=== PATIENT | male | born 1970 | race Caucasian/White ===

== ENCOUNTER → 2021-07-06 15:59 | Outpatient (BNVA) | payer OTHER, SELFPAY | PROVIDERS: PCP Internal Medicine; Referring Provider Internal Medicine; Visit Provider Nurse Practitioner Family ==

== ENCOUNTER 2021-11-12 07:35 | Outpatient (REF) | payer OTHER, SELFPAY ==
[2021-11-12 11:56] LABS: Alanine Aminotransferase 41 U/L (0-40); Albumin Level 4.6 g/dL (3.5-5.0); Alkaline Phosphatase 55 U/L (39-117); Anion Gap 13 (12-20); Aspartate Amino Transferase 23 U/L (5-37); Bilirubin Total 0.6 mg/dL (0.0-1.0); Blood Urea Nitrogen 19 mg/dL (9-16); Calcium 9.5 mg/dL (8.4-10.2); Carbon Dioxide 27 mmol/L (22-29); Chloride 106 mmol/L (96-108); Cholesterol 193 mg/dL; Estimated Glomerular Filt Rate > 60; Glucose Fasting 94 mg/dL (60-99); HDL Cholesterol 35 mg/dL; LDL Cholesterol Calculated 123 mg/dl; Potassium 3.7 mmol/L (3.3-5.1); Sodium 142 mmol/L (135-145); Total Protein 7.5 g/dL (6.5-8.0); Triglycerides 178 mg/dL
[2021-11-12 12:17] LABS: Vitamin D 25-OH Total 13.5 ng/mL (>30)
== END 2021-11-12 07:36 | disposition home or self-care (01) ==
LOC: HO.HMGCLDS 07:35
PROVIDERS: PCP Internal Medicine; Visit Provider Internal Medicine
DX: E78.1 Pure hyperglyceridemia (principal); I10 Essential (primary) hypertension
CPT/HCPCS: 36415; 80053; 80061; 82306

== ENCOUNTER 2021-12-28 07:23 | Day surgery (SDC) | payer OTHER, SELFPAY ==
[2021-12-24 15:23] VITALS: BMI 29.0
[2021-12-28 07:30] VITALS: BMI 28.7
[2021-12-28 07:43] VITALS: BP 149/89; PULSE 101; RESP 16; TEMP 36.6; O2SAT 98
[2021-12-28] MEDS: Lactated Ringers 1,000 ML 50 ML IVCONT (07:50)
--- NOTE | 2021-12-28 07:53 | MHC.SHP ---
Pre-Procedural Eval Section A Date of Service: 12/28/21 The patient is an INPATIENT: No The History & Physical has been completed within 30 days and I have reviewed it.: No Section B Chief Complaint: screening Details of Present Illness: Colon cancer screening Relevant Family History (Specify if Yes): No Relevant Social History: None Present Medications: see Short Stay Collaborative assessment Medical History: Significant History (Essential hypertension Heartburn symptom Influenza vaccination declined Low back pain potentially associated with radiculopathy Lumbago Tetanus, diphtheria, and acellular pertussis (Tdap) vaccination declined) History of Previous Operations: Relevant previous surgery/procedure and date(s) (History of EGD) Allergies: Allergies Allergy/AdvReac Type Severity Reaction Status Date / Time Sulfa (Sulfonamide Allergy Unknown Rash Verified 10/12/21 09:49 Antibiotics) Review of Systems Sugical H&P ROS: Negative: Constitution, Cardiovascular, Respiratory and Gastrointestinal Exam Surgical H&P Exam: Normal: Heart, Normal: Lungs, Normal: Extremities and Normal: Abdomen Plan Diagnosis/Plan: Unchanged I have reviewed the history and physical and performed a pertinent physical examination on my patient. No changes have occurred unless specified.
--- NOTE | 2021-12-28 07:55 | W.PM.OPN ---
Operative Note Operative Note Date of Service: 12/28/21 Narrative: Pre-op diagnosis: Colon cancer screening Post-op diagnosis:?other (Colon polyps, diverticulosis, hemorrhoids) Procedure: COLONOSCOPY TILL CECUM WITH BIOPSIES Consent: Indications for the procedure and potential complications of bleeding, perforation, reaction to medications and missed diagnosis were discussed with the patient and informed consent was obtained. Instrument: Olympus PCF H 190 L variable stiffness pediatric colonoscope Monitoring: Vital signs and clinical assessment, intermittent blood pressure monitoring, continuous EKG monitoring, Pulse oximetry and Carbon Dioxide monitoring were done throughout the procedure. Colon withdrawl time was 17 minutes. Procedure: The patient was placed in the left lateral decubitis position and pre-procedure medications were administered. After a digital rectal examination of the ano-rectum, the video colonoscope was inserted into the rectum and advanced through the colon to the cecum. The colonoscope was slowly withdrawn in a retrograde panoramic fashion and the colon mucosa was carefully examined including a retroflexed view of the rectum. Findings and interventions are described below. Procedure Difficulty: Without difficulty Findings: Terminal Ileum: Not evaluated Cecum:? Normal Ascending Colon:? A 5-6 mm sessile polyp removed with a cold biopsy Transverse Colon:? Normal Descending Colon:? Normal Sigmoid Colon:? A 4-5 mm diminutive appearing polyp removed with a cold biopsy. Moderate diverticulosis Rectum:? Two 3-4 mm diminutive appearing polyps - removed with a cold biopsy Ano-rectum:? Moderate internal hemorrhoids Colon preparation: Excellent ? Impression and Post Procedure Diagnosis: Colonoscopy Findings: Four small polyps removed Moderate diverticulosis seen in the sigmoid colon Moderate hemorrhoids on retroflexed exam. Plan: Await pathology results Patient has an appointment on 01/09/22 in the GI Clinic with ? Rosanna Dickson FNP- . Repeat Colonoscopy interval based on path results - in 3-5 years if polyps are adenomatous and 10 years if polyps are hyperplastic. Above findings were reviewed with the patient and colon polyps and diverticulosis handouts were given in the discharge area Surgeon: Gerardo Huang MD Anesthesia:?INGRID (Shona Conley CRNA) Was an Pediatrician Managing Partner used for this Procedure?:?Yes Pediatrician Managing Partner:?Alyssa Lyons Estimated blood loss (mL):?0 Pathology:?other (A. ASCENDING COLON POLYP? B. SIGMOID POLYP? C. RECTAL POLYPS) Condition:?stable Disposition:?PACU
--- NOTE | 2021-12-28 08:18 | P.CONAN_ITS ---
[facility] Active Problems Active Problems: All Active Problems (Updated 11/12/21 @ 16:38 by Jeanna Christensen MD) Vitamin D deficiency (Acute) Hypertriglyceridemia (Acute) Tetanus, diphtheria, and acellular pertussis (Tdap) vaccination declined (Acute) Influenza vaccination declined (Acute) Essential hypertension (Acute) Past Medical History Medical History Essential hypertension Heartburn symptom Hypertriglyceridemia Influenza vaccination declined Low back pain potentially associated with radiculopathy Lumbago Tetanus, diphtheria, and acellular pertussis (Tdap) vaccination declined Vitamin D deficiency Family History Family History Father No problems noted. Mother Mental health disorder Brother No problems noted. Sister No problems noted. Daughter No problems noted. Surgical History Surgical History History of esophagogastroduodenoscopy (EGD) No pertinent past surgical history History of Problems with Anesthesia: No Social History Social History Housing: House Alcohol intake: current Alcohol intake frequency: a few times a month Patient Tobacco Use Status: Former Tobacco user Years Smoked: 6 months Use of substances other than those prescribed or required for medical reasons: No Are you DNR?: No Advance Directives: No Advance Directives Information Provided: Yes Recently lost weight without trying: No How much weight loss: 2-13 pounds Nutrition Risks: No Nutritional Risk Current occupational status: employed Meds Allergies Allergy/AdvReac Type Severity Reaction Status Date / Time Sulfa (Sulfonamide Allergy Unknown Rash Verified 10/12/21 09:49 Antibiotics) Exam Exam Date and Time: December 28, 2021 0818 Height,Weight and Vital Signs: Height 5 ft 10 in Weight 90.718 kg Last Vital Signs Temp 97.8 F 12/28/21 07:43 Pulse 101 H 12/28/21 07:43 Resp 16 12/28/21 07:43 BP 149/89 H 12/28/21 07:43 Pulse Ox 98 12/28/21 07:43 Airway Mallampati Class: III TM Dist: >3cm Neck ROM: Full Loose/Missing/Broken Teeth: No Heart: RRR Lungs: CTA Assessment and Plan Assessment Anesthesia Assessment: Anesthesia Plan Discussed and Chart Reviewed Final Anesthetic Review History of Problems with Anesthesia: No NPO: Yes ASA Class: II Final Preanesthetic Review: Meds/Allgs Chart Reviewed, Consent Obtained/Reviewed and Anes Risks/Benef Reviewed Patient Risk: Low Procedure Risk: Low Anesthetic Plan Anesthetic Plan: MAC: Disposition: Standard PACU
[2021-12-28 09:16] VITALS: BP 97/65; PULSE 68; RESP 18; TEMP 36.4; O2SAT 99
[2021-12-28 09:31] VITALS: BP 114/62; PULSE 72; RESP 18; O2SAT 96
== END 2021-12-28 10:19 | disposition home or self-care (01) ==
PROVIDERS: PCP Internal Medicine; Visit Provider Internal Medicine Gastroenterology
PROC: 0DJD8ZZ Inspection of Lower Intestinal Tract, Via Natural or Artificial Opening Endoscopic (ICD-10-PCS; CPT 45378; principal; 2021-12-28 08:30)
DX: Z12.11 Encounter for screening for malignant neoplasm of colon (principal); D12.2 Benign neoplasm of ascending colon; K63.5 Polyp of colon; K62.1 Rectal polyp; K57.30 Diverticulosis of large intestine without perforation or abscess without bleeding; K64.8 Other hemorrhoids; I10 Essential (primary) hypertension; R12 Heartburn; Z79.899 Other long term (current) drug therapy; Z88.2 Allergy status to sulfonamides; Z87.891 Personal history of nicotine dependence
CPT/HCPCS: 45380; 88305

== ENCOUNTER 2022-01-09 08:11 | Outpatient (REF) | payer OTHER, SELFPAY ==
[2022-01-10 15:08] LABS: H Pylori Breath Test Negative (Negative)
== END 2022-01-09 08:12 | disposition home or self-care (01) ==
LOC: HO.LNP 08:11
PROVIDERS: PCP Internal Medicine; Referring Provider Internal Medicine; Visit Provider Nurse Practitioner Family
DX: K57.90 Diverticulosis of intestine, part unspecified, without perforation or abscess without bleeding (principal); K64.8 Other hemorrhoids; K63.5 Polyp of colon; K21.9 Gastro-esophageal reflux disease without esophagitis; K59.00 Constipation, unspecified; Z87.891 Personal history of nicotine dependence; Z98.890 Other specified postprocedural states; Z11.0 Encounter for screening for intestinal infectious diseases
CPT/HCPCS: 83013

== ENCOUNTER 2022-11-22 09:29 | Outpatient (REF) | payer OTHER, SELFPAY ==
[2022-11-22 11:16] LABS: MANUAL DIFF FLAG NO
[2022-11-22 11:25] LABS: Basophils Absolute Auto 0.1 X10*3/uL (0.0-0.2); Basophils Percent Auto 0.8 % (0-2); Eosinophils Absolute Auto 0.3 X10*3/uL (0.0-0.4); Eosinophils Percent Auto 4.2 % (0-4); Hematocrit 42.8 % (42.0-52.0); Hemoglobin 14.6 g/dl (14.0-18.0); Imm Gran Abs Auto 0.02 X10*3/uL (0.00-0.03); Imm Gran Pct Auto 0.3 % (0.0-0.4); Lymphocytes Absolute Auto 1.7 X10*3/uL (1.2-4.9); Lymphocytes Percent Auto 27.4 % (20-40); Mean Corpuscular HGB Conc 34.1 g/dl (31.0-36.0); Mean Corpuscular Hemoglobin 29.4 pg (27.0-33.0); Mean Corpuscular Volume 86.1 fL (80.0-98.0); Monocytes Absolute Auto 0.6 X10*3/uL (0.1-1.2); Neutrophils Absolute Auto 3.6 x10*3/uL (2.0-8.3); Neutrophils Percent Auto 57.3 % (45-73); Platelet Count 256 X10*3/uL (160-400); Red Blood Count 4.97 X10*6/uL (4.60-5.80); Red Cell Distribution Width 12.6 % (11.0-16.0); White Blood Count 6.2 X10*3/uL (4.8-10.8)
[2022-11-22 11:51] LABS: Alanine Aminotransferase 38 U/L (0-40); Anion Gap 11 (12-20); Aspartate Amino Transferase 26 U/L (5-37); Blood Urea Nitrogen 18 mg/dL (9-16); Calcium 9.9 mg/dL (8.4-10.2); Carbon Dioxide 29 mmol/L (22-29); Chloride 104 mmol/L (96-108); Cholesterol 211 mg/dL; Estimated Glomerular Filt Rate > 60; Glucose Fasting 90 mg/dL (60-99); HDL Cholesterol 37 mg/dL; LDL Cholesterol Calculated 144 mg/dl; Potassium 3.9 mmol/L (3.3-5.1); Sodium 140 mmol/L (135-145); Triglycerides 154 mg/dL
[2022-11-22 12:12] LABS: Vitamin D 25-OH Total 19.1 ng/mL (>30)
== END 2022-11-22 09:30 | disposition home or self-care (01) ==
LOC: HO.HMGCLDS 09:29
PROVIDERS: Visit Provider Internal Medicine
DX: E55.9 Vitamin D deficiency, unspecified (principal); E78.1 Pure hyperglyceridemia; K64.8 Other hemorrhoids; I10 Essential (primary) hypertension
CPT/HCPCS: 36415; 80048; 80061; 82306; 84450; 84460; 85025

== ENCOUNTER 2023-12-20 06:49 | Outpatient (REF) | payer OTHER, SELFPAY ==
[2023-12-20 11:40] LABS: Alanine Aminotransferase 32 U/L (0-40); Albumin Level 4.5 g/dL (3.5-5.0); Alkaline Phosphatase 52 U/L (39-117); Anion Gap 12 (12-20); Aspartate Amino Transferase 23 U/L (5-37); Bilirubin Total 0.6 mg/dL (0.0-1.0); Blood Urea Nitrogen 20 mg/dL (9-16); Calcium 9.5 mg/dL (8.4-10.2); Carbon Dioxide 26 mmol/L (22-29); Chloride 107 mmol/L (96-108); Cholesterol 216 mg/dL (<200); Estimated Glomerular Filt Rate > 60; Glucose Fasting 98 mg/dL (60-99); HDL Cholesterol 45 mg/dL (>40); LDL Cholesterol Calculated 149 mg/dL (<100); Potassium 3.6 mmol/L (3.3-5.1); Sodium 141 mmol/L (135-145); Triglycerides 111 mg/dL (<150)
[2023-12-20 11:57] LABS: Vitamin D 25-OH Total 31.6 ng/mL (>30)
== END 2023-12-20 06:50 | disposition home or self-care (01) ==
LOC: HO.HMGCLDS 06:49
PROVIDERS: PCP Internal Medicine; Visit Provider Internal Medicine
DX: E78.1 Pure hyperglyceridemia (principal); I10 Essential (primary) hypertension; E55.9 Vitamin D deficiency, unspecified
CPT/HCPCS: 36415; 80053; 80061; 82306

== ENCOUNTER → 2023-12-23 10:36 | Outpatient (AMB) | payer OTHER, SELFPAY ==
--- NOTE | 2023-12-23 11:07 | A.OFFPC_ITS ---
Vital Signs 12/23/23 11:10 Height 5 ft 10 in Weight 200 lb BMI 28.7 BP 124/80 Blood Pressure Location Lt brachial Position Sitting Pulse 74 Pulse Source Pulse Oximeter Pulse Oximetry (%) 100 Oxygen Delivery Method Room Air Intake Visit Reasons: Blood work Intake Note: Pt is here today for his recent lab results Allergies Sulfa (Sulfonamide Antibiotics) Allergy (Unknown, Verified 12/23/23 11:27) Rash Medication List - Last Reconciled 12/23/23 by Jeanna Christensen MD amlodipine 10 mg PO QPM lisinopril-hydrochlorothiazide 20-25 mg 1 tab PO DAILY Tobacco use date assessed: 12/23/23 Dental Screening Dental Screen Date: 12/23/23 Did you have a dental visit in the last 12 months?: Yes Did you have a dental problem in the last 6 months where you did not have access to dental care?: Yes Was dental information given to patient?: Patient has dentist HPI Blood work HPI Details 53-year-old male with hypertension, here today for follow-up. Currently taking amlodipine and lisinopril-HCTZ with blood pressure stable controlled. Recent fasting labs showed results within normal limits except for elevated LDL cholesterol at 149 mg/dl. He has been feeling well except for recurrent pain across his lower back. He had an MRI in 2020 which showed presence of severe foraminal stenosis in T11-T12 with nerve compression seen, and lumbar spinal stenosis with some cord compression noted in lumbar spine. Would like a referral now to see neuro spine surgery for further evaluation and management. [facility] Medical History (Updated 12/28/23 @ 00:55 by Jeanna Christensen MD) Hyperlipidemia Degenerative thoracic spinal stenosis Spinal stenosis of lumbar region with radiculopathy Family history of dissecting aortic aneurysm Internal hemorrhoid Diverticulosis Vitamin D deficiency Hypertriglyceridemia Low back pain potentially associated with radiculopathy Heartburn symptom Lumbago Tetanus, diphtheria, and acellular pertussis (Tdap) vaccination declined Influenza vaccination declined Essential hypertension Surgical History Hx of colonoscopy History of esophagogastroduodenoscopy (EGD) No pertinent past surgical history Family History Father Dissecting aortic aneurysm (any part), thoracic Mother Mental health disorder Essential hypertension Brother No problems noted. Sister No problems noted. Daughter No problems noted. Maternal Grandmother Diabetes mellitus Social History Housing: House Alcohol intake: current Alcohol intake frequency: a few times a month Patient Tobacco Use Status: Former Tobacco user Years Smoked: 6 months e-Cigarette/Vaping Use: Never Used Current occupational status: employed Cognitive needs: No Hearing needs: No Vision needs: Yes Questionnaire PHQ-9 Over the last 2 weeks, how often have you been bothered by any of the following problems? 1. Little interest or pleasure in doing things: not at all 2. Feeling down, depressed, or hopeless: not at all 3. Trouble falling or staying asleep, or sleeping too much: not at all 4. Feeling tired or having little energy: not at all 5. Poor appetite or overeating: not at all 6. Feeling bad about yourself - or that you are a failure or have let yourself or your family down: not at all 7. Trouble concentrating on things, such as reading the newspaper or watching television: not at all 8. Moving or speaking so slowly that other people could have noticed. Or the opposite - being so fidgety or restless that you have been moving around a lot more than usual: not at all 9. Thoughts that you would be better off or of hurting yourself in some way: not at all Total score: 0 Depression Screening Interpretation: Negative Depression Screening Done: Yes 28638 - PHQ-9 Billing: Yes Source: Developed by Drs. Joshua Valentino, Nayeli Keene, Irineo Chung and colleagues, with an educational pato from [employer] Thrive Questionnaire Date Thrive assessed: 12/23/23 I am a: Patient What is your living situation today?: I have a steady place to live Within the past 12 months, did the food you bought not last and you didn't have the money to get more?: Never true Within the past 12 months, did you worry whether your food would run out before you got money to buy more?: Never true Do you have trouble paying for medicines?: No Do you have trouble getting transportation to medical appointments?: No Do you have trouble paying your heating and electricity bill?: No Do you have trouble taking care of your child, family member or friend?: No Do you have trouble with day-to-day activities such as bathing, preparing meals, shopping, managing finances, etc.?: No Are you currently unemployed and looking for a job?: No Are you interested in more education?: No THRIVE Score: 0 AUDIT C Alcohol Use Questionnaire (AUDIT-C) 1. How often do you have a drink containing alcohol?: Monthly or less 2. How many drinks containing alcohol do you have on a typical day when you are drinking?: 1 or 2 3. How often do you have six or more drinks on one occasion?: Never Total Score: 1 NICOLÁS-7 AMB Questionnaire NICOLÁS-7 Date NICOLÁS - 7 assessed: 12/23/23 Feeling nervous, anxious, or on edge: 0 = Not at all Not being able to stop or control worryin = Not at all Worrying too much about different things: 0 = Not at all Trouble relaxin = Not at all Being so restless that it is hard to sit still: 0 = Not at all Becoming easily annoyed or irritable: 0 = Not at all Feeling afraid as if something awful might happen: 0 = Not at all Total NICOLÁS-7 score (0-4 normal; 5-9 mild; 10-14 moderate; 15-21 severe): 0 Source: Developed by Drs. Joshua Valentino, Nayeli Keene, rIineo Chung and colleagues, with an educational pato from [employer] NICOLÁS-7 Assessment Billing NICOLÁS-7 Assessment Tool: NICOLÁS-7 Assessment 31766 Review of Systems Const Denies fever(s), Denies headache(s), Denies malaise and Denies weakness Eyes Details: Goes to [facility] for his routine eye exams in [place] ENT Denies otalgia, Denies headache(s), Denies nasal congestion and Denies d isequilibrium Card Reports no additional complaints Resp Reports no additional complaints GI Denies abdominal pain, Denies change in bowel habits, Denies excessive flatus, Denies dyspepsia, Reports heartburn (at night time), Denies diarrhea, Denies loose stools, Denies nausea and Denies vomiting Reports no additional complaints Musc Reports as per HPI Skin/Breast Denies dry skin, Denies lesions and Denies rash Neuro Reports no additional complaints, Denies headache(s), Denies disequilibrium and Denies weakness Psych Reports no additional complaints Endo Reports no additional complaints Nikc/Lymph Denies easy bleeding and Denies easy bruising Aller/Immun Reports no additional complaints Physical exam (Primary Care) Vital Signs: Last Vital Signs Pulse 74 12/23/23 11:10 BP 124/80 12/23/23 11:10 Pulse Ox 100 12/23/23 11:10 Oxygen Delivery Method Room Air 12/23/23 11:10 BMI result Body Mass Index 28.7 Tobacco/Smoking Status: Tobacco use Status Tobacco use date assessed 12/23/23 12/23/23 11:09 Patient Tobacco Use Status Former Tobacco user 12/23/23 11:09 e-Cigarette/Vaping Use Never Used 12/23/23 11:09 PHQ-9: PHQ-9 Score PHQ-9: Total score 0 12/23/23 11:21 Depression Screening Interpretation: Negative Thrive Assessment: Date of Thrive Assessment Date Thrive assessed 12/23/23 12/23/23 11:14 Const General: cooperative, comfortable and no acute distress Orientation/consciousness: patient oriented x3 HENMT Mouth: Normal oral and palatal mucosa present, oropharynx normal and moist mucous membranes Eyes General: appearance normal, both eyes and all related structures Conjunctivae: conjunctivae normal Pupils: Equal, round and reactive pupils present EOM: EOMs intact bilaterally Neck Neck: Yes full ROM, Yes no lymphadenopathy and Yes supple Chest Chest palpation & inspection: normal inspection of the chest Resp Effort & Inspection: normal respiratory effort and able to speak in complete sentences Auscultation: clear to auscultation bilaterally Cardio Rate: regular rate Rhythm: regular rhythm Heart sounds: S1 normal heart sound present and S2 normal heart sound present GI Inspection: Yes normal to inspection Palpation (GI): Soft to palpation, nontender and no masses Auscultation: normal bowel sounds General: Yes no CVA tenderness Male General Exam: Yes normal external exam and No hernia Back/Spine/Pelvis Back: no CVA tenderness Cervical Spine: normal cervical lordosis and cervical ROM normal Thoracic/Lumbar Spine: straight leg raise negative bilaterally, pain with thoraco-lumbar ROM and paraspinal muscle tenderness Skin General skin exam: no rashes or lesions noted Neuro General: patient oriented x3, gait normal, tone normal, moves all extremities, Normal light touch and pain sensation and no focal motor deficits Cranial nerves: Yes Equal, round and reactive pupils present Cognition (Neuro): normal cognition Gait exam (Neuro): Normal gait present Motor exam (neuro): 5/5 motor strength present throughout Extrem General: Yes full ROM, Yes no joint enlargement, Yes no pedal edema, Yes no calf tenderness and Yes normal gait Psych Appearance: grossly normal and well kempt Mental Status: mental status grossly normal Speech and movement: Normal speech and movement present Affect: normal affect Attitude: cooperative Thought process: Normal thought process present Results Reviewed Results Reviewed: ENTERED: 12/20/[address]: ORDERED: CMP Fast, Lipid Panel, Vitamin D 25-OH Test Result Flag Reference Sodium 141 135-145 mmol/L Potassium 3.6 3.3-5.1 mmol/L CL 107 96-108 mmol/L CO2 26 22-29 mmol/L Gap 12 12-20 BUN 20 H 9-16 mg/dL Creat 0.82 0.5-1.4 mg/dL EGFR > 60 NOTE: For -[place] individuals, multiply the result by 1.210. Chronic Kidney Disease: Estimated GFR < 60 mL/min/1.73m2 Severe Kidney Disease: Estimated GFR < 15 mL/min/1.73m2 FBS 98 60-99 mg/dL CA 9.5 8.4-10.2 mg/dL Total Bili 0.6 0.0-1.0 mg/dL AST (GOT) 23 5-37 U/L ALT (GPT) 32 0-40 U/L Protein, Total 7.0 6.5-8.0 g/dL Alb 4.5 3.5-5.0 g/dL Triglyceride 111 <150 mg/dL Desirable Triglyceride: less than 150 mg/dL Borderline High Triglyceride 150-199 mg/dL High Triglyceride: 200-499 mg/dL Very High Triglyceride: greater than or equal to 5OO mg/dL Cholesterol 216 H <200 mg/dL Desirable Cholesterol: less than 200 mg/dL Borderline High Cholesterol: 200-239 mg/dL High Cholesterol: greater than 239 mg/dL LDL Calculated 149 H <100 mg/dL Desirable LDL: less than 100 mg/dL Near Optimal/Above Optimal LDL: 110-129 mg/dL Borderline High LDL: 130-159 mg/dL High LDL: 160-189 mg/dL Very High LDL: greater than or equal to 190 mg/dL HDL 45 >40 mg/dL Desirable HDL: greater than 40 mg/dL Note: This HDL assay may give artificially low results in patients with liver disease. Alk Phos 52 39-117 U/L Vit D 25-OH Tot 31.6 >30 ng/mL Health Based Reference Values* < 20 ng/mL Deficient 20-30 ng/mL Insufficient > 30 ng/mL Sufficient Assessment and Plan Assessment & Plan (1) Essential hypertension: Code(s): I10 - Essential (primary) hypertension Plan: Blood pressure goal is less than 130/80. Continue with lisinopril-HCTZ and amlodipine 10 mg once a day was added. Reinforced importance of following a low sodium diet, getting regular exercise, and lowering stress levels. (2) Degenerative thoracic spinal stenosis: Code(s): M48.04 - Spinal stenosis, thoracic region Plan: Neuro spine referral consult ordered (3) Spinal stenosis of lumbar region with radiculopathy: Code(s): M48.061 - Spinal stenosis, lumbar region without neurogenic claudication; M54.16 - Radiculopathy, lumbar region Plan: Neuro spine referral consult ordered (4) Hyperlipidemia: Code(s): E78.5 - Hyperlipidemia, unspecified Qualifiers: Hyperlipidemia type: pure hypercholesterolemia Qualified Code(s): E78.00 - Pure hypercholesterolemia, unspecified Plan: Reviewed recent fasting lipid profile with patient with LDL cholesterol elevated . Stressed importance of following a low-cholesterol diet and regular exercise, at least 30 minutes 3 to 4 times a week. Advised patient to make healthy food choices, eat more fruits, vegetables, whole grains, wild caught fish and low-fat dairy. Limit amount of meat and fried or fatty food products, as well as processed foods and fast foods. Orders: Referrals Neuro Spine Referral M48.04 - Spinal stenosis, thoracic region, M48.061 - Spinal stenosis, lumbar region without neurogenic claudication, M54.16 - Radiculopathy, lumbar region Medications: New amlodipine 10 mg PO DAILY 90 tabs 1RF Coding Level of Care Code Est Pt Level 4 (89486) Diagnoses Essential hypertension I10 Degenerative thoracic spinal stenosis M48.04 Spinal stenosis of lumbar region with radiculopathy M48.061; M54.16 Pure hypercholesterolemia E78.00 Hyperlipidemia type: pure hypercholesterolemia Additional Codes NICOLÁS-7 Assessment Billing - NICOLÁS-7 Assessment Tool: NICOLÁS-7 Assessment 59012 ([id number])
[2023-12-23 11:10] VITALS: BP 124/80; PULSE 74; O2SAT 100; BMI 28.7
== END ==
PROVIDERS: PCP Internal Medicine; Visit Provider Internal Medicine
DX: I10 Essential (primary) hypertension (principal); M48.04 Spinal stenosis, thoracic region; M48.061 Spinal stenosis, lumbar region without neurogenic claudication; M54.16 Radiculopathy, lumbar region; E78.00 Pure hypercholesterolemia, unspecified
CPT/HCPCS: 99214

== ENCOUNTER 2024-11-30 11:00 | Outpatient (AMB) | payer OTHER, SELFPAY ==
[2024-11-30 11:32] VITALS: BP 132/84; PULSE 76; RESP 16; TEMP 36.6; O2SAT 98; BMI 28.7
--- NOTE | 2024-11-30 11:32 | MHC.PC.OV ---
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 Required: No Accompanied by: Self / Same As Patient Allergies Sulfa (Sulfonamide Antibiotics) Allergy (Unknown, Verified 11/30/24 11:49) Rash Medication List - Last Reconciled 11/30/24 by Jeanna Christensen MD amlodipine 10 mg PO DAILY lisinopril-hydrochlorothiazide 20-25 mg 1 tab PO DAILY Tobacco use date assessed: 11/30/24 Dental Screening Dental Screen Date: 11/30/24 Did you have a dental visit in the last 12 months?: Yes Did you have a dental problem in the last 6 months where you did not have access to dental care?: No Was dental information given to patient?: Patient has dentist HPI Back Pain HPI Details 54 year-old male with past medical history of hypertension, hyperlipidemia, and chronic low back pain found to have degenerative spinal stenosis in lumbar and thoracic spine, here today for follow-up. Currently taking amlodipine and lisinopril-HCTZ with blood pressure stable and controlled. Last fasting labs showed results within normal limits except for elevated LDL cholesterol at 149 mg/dl. He has been feeling well except for recurrent pain across his lower back. He had an MRI in 2020 which showed presence of severe foraminal stenosis in T11-T12 with nerve compression seen, and lumbar spinal stenosis with some cord compression noted in lumbar spine. He sees the dura good base and bad days, but latter is happening more frequently. Denies any numbness weakness in extremities, no los of bladder or bowel control reported. Continues to exercise regularly at the gym but refrains from using heavy weights. [facility] Medical History Hyperlipidemia Degenerative thoracic spinal stenosis Spinal stenosis of lumbar region with radiculopathy Family history of dissecting aortic aneurysm Internal hemorrhoid Diverticulosis Vitamin D deficiency Hypertriglyceridemia Low back pain potentially associated with radiculopathy Heartburn symptom Lumbago Tetanus, diphtheria, and acellular pertussis (Tdap) vaccination declined Influenza vaccination declined Essential hypertension Surgical History Hx of colonoscopy History of esophagogastroduodenoscopy (EGD) No pertinent past surgical history Family History Father Dissecting aortic aneurysm (any part), thoracic Mother Mental health disorder Essential hypertension Brother No problems noted. Sister No problems noted. Daughter No problems noted. Maternal Grandmother Diabetes mellitus Social History Housing: House Alcohol intake: current Alcohol intake frequency: a few times a month Patient Tobacco Use Status: Former Tobacco user Years Smoked: 6 months e-Cigarette/Vaping Use: Never Used service: No Current occupational status: employed Cognitive needs: No Hearing needs: No Vision needs: Yes Questionnaire PHQ-9 Over the last 2 weeks, how often have you been bothered by any of the following problems? 1. Little interest or pleasure in doing things: not at all 2. Feeling down, depressed, or hopeless: not at all 3. Trouble falling or staying asleep, or sleeping too much: not at all 4. Feeling tired or having little energy: not at all 5. Poor appetite or overeating: not at all 6. Feeling bad about yourself - or that you are a failure or have let yourself or your family down: not at all 7. Trouble concentrating on things, such as reading the newspaper or watching television: not at all 8. Moving or speaking so slowly that other people could have noticed. Or the opposite - being so fidgety or restless that you have been moving around a lot more than usual: not at all 9. Thoughts that you would be better off or of hurting yourself in some way: not at all Total score: 0 Depression Screening Interpretation: Negative Depression Screening Done: Yes 23048 - PHQ-9 Billing: Yes Source: Developed by Drs. Joshua Valentino, Nayeli Keene, Irineo Chung and colleagues, with an educational pato from [employer]. Thrive Questionnaire Date Thrive assessed: 11/30/24 I am a: Patient What is your living situation today?: I have a steady place to live Within the past 12 months, did the food you bought not last and you didn't have the money to get more?: I choose not to answer this question Within the past 12 months, did you worry whether your food would run out before you got money to buy more?: I choose not to answer this question Do you have trouble paying for medicines?: No Do you have trouble getting transportation to medical appointments?: No Do you have trouble paying your heating and electricity bill?: No Do you have trouble taking care of your child, family member or friend?: No Do you have trouble with day-to-day activities such as bathing, preparing meals, shopping, managing finances, etc.?: No Are you currently unemployed and looking for a job?: No Are you interested in more education?: No Please select the resources that you would like help with: None Currently or been in a relationship where the following occur: I choose not to answer THRIVE Score: 0 AUDIT C Alcohol Use Questionnaire (AUDIT-C) 1. How often do you have a drink containing alcohol?: Monthly or less 2. How many drinks containing alcohol do you have on a typical day when you are drinking?: 1 or 2 3. How often do you have six or more drinks on one occasion?: Less than monthly Total Score: 2 Score Reviewed/Action Taken: Yes NICOLÁS-7 AMB Questionnaire NICOLÁS-7 Date NICOLÁS - 7 assessed: 11/30/24 Feeling nervous, anxious, or on edge: 0 = Not at all Not being able to stop or control worryin = Not at all Worrying too much about different things: 0 = Not at all Trouble relaxin = Not at all Being so restless that it is hard to sit still: 0 = Not at all Becoming easily annoyed or irritable: 0 = Not at all Feeling afraid as if something awful might happen: 0 = Not at all Total NICOLÁS-7 score (0-4 normal; 5-9 mild; 10-14 moderate; 15-21 severe): 0 Source: Developed by Drs. Joshua Valentino, Nayeli Keene, Irineo Chung and colleagues, with an educational pato from [employer]. NICOLÁS-7 Assessment Billing NICOLÁS-7 Assessment Tool: NICOLÁS-7 Assessment 49266 Review of Systems Const All systems reviewed & are unremarkable except as noted in HPI and below Physical exam (Primary Care) Vital Signs: Last Vital Signs Temp 97.9 F 11/30/24 11:32 Pulse 76 11/30/24 11:32 Resp 16 11/30/24 11:32 BP 132/84 11/30/24 11:32 Pulse Ox 98 11/30/24 11:32 BMI result Body Mass Index 28.7 Tobacco/Smoking Status: Tobacco use Status Tobacco use date assessed 11/30/24 11/30/24 11:33 Patient Tobacco Use Status Former Tobacco user 11/30/24 11:33 e-Cigarette/Vaping Use Never Used 11/30/24 11:33 PHQ-9: PHQ-9 Score PHQ-9: Total score 0 11/30/24 11:49 Depression Screening Interpretation: Negative Thrive Assessment: Date of Thrive Assessment Date Thrive assessed 11/30/24 11/30/24 11:33 Currently or been in a relationship where the following occur: I choose not to answer Const General: comfortable and no acute distress Orientation/consciousness: patient oriented x3 Eyes General: appearance normal, both eyes and all related structures Neck Neck: Yes full ROM, Yes no lymphadenopathy and Yes supple Resp Effort & Inspection: normal respiratory effort and able to speak in complete sentences Auscultation: clear to auscultation bilaterally Cardio Rate: regular rate Rhythm: regular rhythm Heart sounds: S1 normal heart sound present and S2 normal heart sound present GI Inspection: Yes normal to inspection Palpation (GI): Soft to palpation, nontender and no masses Auscultation: normal bowel sounds General: Yes no CVA tenderness Male General Exam: Yes normal external exam and No hernia Back/Spine/Pelvis Back: no CVA tenderness Cervical Spine: normal cervical lordosis and cervical ROM normal Thoracic/Lumbar Spine: straight leg raise negative bilaterally, pain with thoraco-lumbar ROM and paraspinal muscle tenderness Skin General skin exam: no rashes or lesions noted Neuro General: patient oriented x3, gait normal, tone normal, moves all extremities, Normal light touch and pain sensation and no focal motor deficits Cognition (Neuro): normal cognition Gait exam (Neuro): Normal gait present Motor exam (neuro): 5/5 motor strength present throughout Extrem General: Yes full ROM, Yes no joint enlargement, Yes no pedal edema, Yes no calf tenderness and Yes normal gait Psych Appearance: grossly normal and well kempt Mental Status: mental status grossly normal Speech and movement: Normal speech and movement present Affect: normal affect Attitude: cooperative Thought process: Normal thought process present Coding Level of Care Code Est Pt Level 4 (83372) Diagnoses Pure hypercholesterolemia E78.00 Hyperlipidemia type: pure hypercholesterolemia Essential hypertension I10 Spinal stenosis of lumbar region with radiculopathy M48.061; M54.16 Degenerative thoracic spinal stenosis M48.04 Additional Codes NICOLÁS-7 Assessment Billing - NICOLÁS-7 Assessment Tool: NICOLÁS-7 Assessment 93931 ([id number]) PHQ-9 - 55964 - PHQ-9 Billing: Yes ([id number]) Assessment & Plan Assessment & Plan (1) Hyperlipidemia: Code(s): E78.5 - Hyperlipidemia, unspecified Category: Medical Qualifiers: Hyperlipidemia type: pure hypercholesterolemia Qualified Code(s): E78.00 - Pure hypercholesterolemia, unspecified Plan: Fasting lipid panel ordered, advised to adhere to a healthy diet and continue with regular exercise (2) Essential hypertension: Code(s): I10 - Essential (primary) hypertension Category: Medical Plan: Blood pressure stable and controlled on present treatment, continued on lisinopril HCTZ and amlodipine at the same dose (3) Spinal stenosis of lumbar region with radiculopathy: Code(s): M48.061 - Spinal stenosis, lumbar region without neurogenic claudication; M54.16 - Radiculopathy, lumbar region Category: Medical Plan: Will order a repeat MRI of lumbar spine without contrast to assess for any progression of disc disease. Continue with regular exercise but avoid lifting weights (4) Degenerative thoracic spinal stenosis: Code(s): M48.04 - Spinal stenosis, thoracic region Category: Medical Plan: MRI of lumbar spine ordered which may include the also the lower thoracic spine Orders: Orders Lipid Panel 11/30/24 E78.00 - Pure hypercholesterolemia, unspecified, I10 - Essential (primary) hypertension Aspartate Amino Transferase 11/30/24 E78.00 - Pure hypercholesterolemia, unspecified, I10 - Essential (primary) hypertension Basic Metabolic Panel Fasting 11/30/24 E78.00 - Pure hypercholesterolemia, unspecified, I10 - Essential (primary) hypertension Alanine Aminotransferase 11/30/24 E78.00 - Pure hypercholesterolemia, unspecified, I10 - Essential (primary) hypertension MR lumbar spine wo con 02/04/25 M48.04 - Spinal stenosis, thoracic region, M48.061 - Spinal stenosis, lumbar region without neurogenic claudication, M54.16 - Radiculopathy, lumbar region
== END 2024-11-30 12:30 | disposition home or self-care (01) ==
PROVIDERS: PCP Internal Medicine; Visit Provider Internal Medicine
DX: E78.00 Pure hypercholesterolemia, unspecified (principal); I10 Essential (primary) hypertension; M48.061 Spinal stenosis, lumbar region without neurogenic claudication; M54.16 Radiculopathy, lumbar region; M48.04 Spinal stenosis, thoracic region

== ENCOUNTER → 2024-11-30 11:00 | Outpatient (BNVA) | payer OTHER, SELFPAY | PROVIDERS: PCP Internal Medicine; Visit Provider Internal Medicine | DX: E78.00 Pure hypercholesterolemia, unspecified (principal); I10 Essential (primary) hypertension; M48.061 Spinal stenosis, lumbar region without neurogenic claudication; M54.16 Radiculopathy, lumbar region; M48.04 Spinal stenosis, thoracic region; Z79.899 Other long term (current) drug therapy | CPT/HCPCS: 96127 ==

== ENCOUNTER 2025-03-15 13:55 | Outpatient (REF) | payer OTHER, SELFPAY | END 2025-03-15 13:56 | disposition home or self-care (01) | LOC: HO.HMGCLDS 13:55 | PROVIDERS: PCP Internal Medicine; Visit Provider Internal Medicine | DX: Z13.89 Encounter for screening for other disorder (principal) ==

== ENCOUNTER 2025-03-15 13:55 | Outpatient (AMB) | payer OTHER, SELFPAY ==
[2025-03-15 14:10] VITALS: BP 144/82; PULSE 74; RESP 18; TEMP 36.7; O2SAT 98; BMI 29.1
--- NOTE | 2025-03-15 14:10 | MHC.PC.OV ---
Vital Signs 03/15/25 14:10 Height 5 ft 10 in Weight 203 lb BMI 29.1 BP 144/82 H Blood Pressure Location Lt brachial Position Sitting Respiration 18 Pulse 74 Pulse Source Pulse Oximeter Temp 98.0 F Temp Source Oral Pulse Oximetry (%) 98 Oxygen Delivery Method Room Air Intake Visit Reasons: f/u walkin regarding b/p Intake Note: Pt is here today for his f/u walkin b/p Allergies Sulfa (Sulfonamide Antibiotics) Allergy (Unknown, Verified 03/15/25 14:20) Rash Medication List - Last Reconciled 03/15/25 by Jeanna Christensen MD amlodipine 10 mg PO DAILY atenolol 25 mg PO DAILY lisinopril-hydrochlorothiazide 20-25 mg 1 tab PO DAILY nabumetone 500 mg PO BID PRN Tobacco use date assessed: 03/15/25 Dental Screening Dental Screen Date: 03/15/25 Did you have a dental visit in the last 12 months?: Yes Did you have a dental problem in the last 6 months where you did not have access to dental care?: No Was dental information given to patient?: Patient has dentist HPI f/u walkin regarding b/p HPI Details With a 58-year-old male here today for follow-up on his blood pressure. Was checking it at home proximally week ago, when it was elevated at 170/100 he states that his blood pressure was also elevated after he received his cortisone lumbar injection at [facility] last week . Home readings showed 160/80's with facial flushing. Denies chest pain, headache lightheadedness, or blurred vision. Reports no change in diet, activity level, stress/pain. Currently taking atenolol 25 mg daily and amlodipine 10 mg daily [facility] Medical History (Updated 03/15/25 @ 14:27 by Jeanna Christensen MD) Uncontrolled hypertension Hyperlipidemia Degenerative thoracic spinal stenosis Spinal stenosis of lumbar region with radiculopathy Family history of dissecting aortic aneurysm Internal hemorrhoid Diverticulosis Vitamin D deficiency Hypertriglyceridemia Low back pain potentially associated with radiculopathy Heartburn symptom Lumbago Tetanus, diphtheria, and acellular pertussis (Tdap) vaccination declined Influenza vaccination declined Essential hypertension Surgical History Hx of colonoscopy History of esophagogastroduodenoscopy (EGD) No pertinent past surgical history Family History Father Dissecting aortic aneurysm (any part), thoracic Mother Mental health disorder Essential hypertension Brother No problems noted. Sister No problems noted. Daughter No problems noted. Maternal Grandmother Diabetes mellitus Social History Housing: House Alcohol intake: current Alcohol intake frequency: a few times a month Patient Tobacco Use Status: Former Tobacco user Years Smoked: 6 months e-Cigarette/Vaping Use: Never Used service: No Current occupational status: employed Cognitive needs: No Hearing needs: No Vision needs: Yes Questionnaire Thrive Questionnaire Date Thrive assessed: 11/30/24 NICOLÁS-7 AMB Questionnaire NICOLÁS-7 Date NICOLÁS - 7 assessed: 11/30/24 Source: Developed by Drs. Joshua Valentino, Nayeli Keene, Irineo Chung and colleagues, with an educational pato from [employer]. Review of Systems Const All systems reviewed & are unremarkable except as noted in HPI and below Physical exam (Primary Care) Vital Signs: Last Vital Signs Temp 98.0 F 03/15/25 14:10 Pulse 74 03/15/25 14:10 Resp 18 03/15/25 14:10 BP 144/82 H 03/15/25 14:10 Pulse Ox 98 03/15/25 14:10 Oxygen Delivery Method Room Air 03/15/25 14:10 BMI result Body Mass Index 29.1 Tobacco/Smoking Status: Tobacco use Status Tobacco use date assessed 03/15/25 03/15/25 14:11 Patient Tobacco Use Status Former Tobacco user 03/15/25 14:11 e-Cigarette/Vaping Use Never Used 03/15/25 14:11 Thrive Assessment: Date of Thrive Assessment Date Thrive assessed 11/30/24 03/15/25 14:11 Const General: comfortable and no acute distress Orientation/consciousness: patient oriented x3 Eyes General: appearance normal, both eyes and all related structures Neck Neck: Yes full ROM, Yes no lymphadenopathy and Yes supple Resp Effort & Inspection: normal respiratory effort and able to speak in complete sentences Auscultation: clear to auscultation bilaterally Cardio Rate: regular rate Rhythm: regular rhythm Heart sounds: S1 normal heart sound present and S2 normal heart sound present GI Inspection: Yes normal to inspection Palpation (GI): Soft to palpation, nontender and no masses Auscultation: normal bowel sounds Back/Spine/Pelvis Cervical Spine: normal cervical lordosis and cervical ROM normal Thoracic/Lumbar Spine: straight leg raise negative bilaterally, pain with thoraco-lumbar ROM and paraspinal muscle tenderness Skin General skin exam: no rashes or lesions noted Neuro General: patient oriented x3, gait normal, tone normal, moves all extremities, Normal light touch and pain sensation and no focal motor deficits Cognition (Neuro): normal cognition Gait exam (Neuro): Normal gait present Motor exam (neuro): 5/5 motor strength present throughout Extrem General: Yes full ROM, Yes no joint enlargement, Yes no pedal edema, Yes no calf tenderness and Yes normal gait Psych Appearance: grossly normal and well kempt Mental Status: mental status grossly normal Speech and movement: Normal speech and movement present Affect: normal affect Attitude: cooperative Thought process: Normal thought process present Coding Level of Care Code Est Pt Level 4 (23235) Diagnoses Uncontrolled hypertension I10 Encounter for screening for malignant neoplasm of prostate Z12.5 Assessment & Plan Assessment & Plan (1) Uncontrolled hypertension: Code(s): I10 - Essential (primary) hypertension Category: Medical Plan: Blood pressure is decreasing, now almost back to normal at 144/82. Currently asymptomatic. Increased atenolol dose to 50 mg once a day and continued on amlodipine 10 mg daily. Reinforced importance of following a low-salt diet and getting regular exercise.. Will refer to nephrology for further evaluation management, may benefit from a 24 ambulatory blood pressure monitoring (2) Encounter for screening for malignant neoplasm of prostate: Code(s): Z12.5 - Encounter for screening for malignant neoplasm of prostate Plan: Ordered total PSA Orders: Orders PSA,Total (Free>4and<10) 03/15/25 Z12.5 - Encounter for screening for malignant neoplasm of prostate Referrals Nephrology Referral I10 - Essential (primary) hypertension Medications: Changed From atenolol 25 mg PO DAILY 10 tabs 0RF To atenolol 50 mg PO DAILY 90 tabs 0RF
--- OUTSIDE RECORDS SUMMARY | 2025-03-15 15:15 | XMS_ITS | Data Portability ---
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 On exam, he has a positive straight leg raising test on the left. MRI Lumbar spine shows At T11-T12 there is mild spinal canal stenosis and severe left neural foraminal stenosis with compression of the exiting T11 nerve root. At L3-L4 there is mild spinal canal stenosis and bilateral subarticular stenosis and abutment of the exiting right L3 nerve root. At L4-L5 there is left subarticular extrusion causing compression of the traversing left L5 nerve root. Mild to moderate spinal canal stenosis. Mild compression of the exiting left L4 nerve root and abutment of the exiting right L4 nerve root. He is here for a repeat Lumbar epidural steroid injections under fluoroscopic guidance . The risks and benefits of the procedure? ? ? were discussed in detail. He wishes to proceed. He can follow up as needed. [email or web address] Not available 10/09/2023 16:09:46 02/16/2024 02/16/2024 Amado Lobo is a 53 year old man with low back pain radiating into left lower extremity for the past six months. On exam, he has a positive straight leg raising test on the left. MRI Lumbar spine shows At T11-T12 there is mild spinal canal stenosis and severe left neural foraminal stenosis with compression of the exiting T11 nerve root. At L3-L4 there is mild spinal canal stenosis and bilateral subarticular stenosis and abutment of the exiting right L3 nerve root. At L4-L5 there is left subarticular extrusion causing compression of the traversing left L5 nerve root. Mild to moderate spinal canal stenosis. Mild compression of the exiting left L4 nerve root and abutment of the exiting right L4 nerve root. Repeat Lumbar epidural steroid injection at L4-5 level under fluoroscopic guidance was recommended. The risks and benefits of the procedure? ? ? were discussed in detail. He wishes to proceed. 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 He is doing physical therapy and he plans to see a neurosurgeon and needs an updated MRI. [email or web address] Not available 02/16/2024 15:58:58 03/04/2024 03/04/2024 Amado Lobo is a 53 year old man with low back pain radiating into left lower extremity for the past six months. On exam, he has a positive straight leg raising test on the left. MRI Lumbar spine shows At T11-T12 there is mild spinal canal stenosis and severe left neural foraminal stenosis with compression of the exiting T11 nerve root. At L3-L4 there is mild spinal canal stenosis and bilateral subarticular stenosis and abutment of the exiting right L3 nerve root. At L4-L5 there is left subarticular extrusion causing compression of the traversing left L5 nerve root. Mild to moderate spinal canal stenosis. Mild compression of the exiting left L4 nerve root and abutment of the exiting right L4 nerve root. He is here for a repeat Lumbar epidural steroid injections under fluoroscopic guidance . The risks and benefits of the procedure? ? ? were discussed in detail. He wishes to proceed. He can follow up as needed. [email or web address] Not available 03/04/2024 15:59:33 02/04/2025 02/04/2025 Amado Lobo is a 53 year old man with low back pain radiating into left lower extremity for the past six months. On exam, he has a positive straight leg raising test on the left. MRI Lumbar spine shows At T11-T12 there is mild spinal canal stenosis and severe left neural foraminal stenosis with compression of the exiting T11 nerve root. At L3-L4 there is mild spinal canal stenosis and bilateral subarticular stenosis and abutment of the exiting right L3 nerve root. At L4-L5 there is left subarticular extrusion causing compression of the traversing left L5 nerve root. Mild to moderate spinal canal stenosis. Mild compression of the exiting left L4 nerve root and abutment of the exiting right L4 nerve root. Repeat Lumbar epidural steroid injection at L4-5 level under fluoroscopic guidance was recommended. The risks and benefits of the procedure? ? ? were discussed in detail. He wishes to proceed. 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 He is doing physical therapy and he plans to see a neurosurgeon and needs an updated MRI. [email or web address] Not available 02/07/2025 13:57:33 03/09/2025 03/09/2025 Amado Lobo is a 54 year old man with low back pain radiating into left lower extremity for the past six months. On exam, he has a positive straight leg raising test on the left. MRI Lumbar spine shows At T11-T12 there is mild spinal canal stenosis and severe left neural foraminal stenosis with compression of the exiting T11 nerve root. At L3-L4 there is mild spinal canal stenosis and bilateral subarticular stenosis and abutment of the exiting right L3 nerve root. At L4-L5 there is left subarticular extrusion causing compression of the traversing left L5 nerve root. Mild to moderate spinal canal stenosis. Mild compression of the exiting left L4 nerve root and abutment of the exiting right L4 nerve root. He is here for a repeat Lumbar epidural steroid injections under fluoroscopic guidance . The risks and benefits of the procedure? ? ? were discussed in detail. He wishes to proceed. He can follow up as needed. [email or web address] Not available 03/09/2025 13:26:27 Plan of Treatment Reminders Order Date Submit Date Provider Last Modified By Organization Details Last Modified Time Details Appointments RETURN 2024 02:30P M Jackson mccormick MD Not available Not available Not available Lab None recorded . Referral None recorded . Procedures None recorded . Surgeries None recorded . Imaging None recorded . Medication Orders None recorded . Patient TargetsNo targets recorded. Patient Instructions Encounter Date Encounter Id Patient Instructions Last Modified By Organization Details Last Modified Time 10/09/2023 [id number] He was advised against bed rest lasting longer than four days and to continue activities as tolerated. [email or web address] Not available 10/09/2023 16:03:47 02/16/2024 [id number] He was advised against bed rest lasting longer than four days and to continue activities as tolerated. [email or web address] Not available 02/16/2024 15:57:33 03/04/2024 [id number] He was advised against bed rest lasting longer than four days and to continue activities as tolerated. [email or web address] Not available 03/04/2024 15:59:36 02/04/2025 [id number] He was advised against bed rest lasting longer than four days and to continue activities as tolerated. [email or web address] Not available 02/07/2025 13:57:38 03/09/2025 [id number] He was advised against bed rest lasting longer than four days and to continue activities as tolerated. [email or web address] Not available 03/09/2025 13:25:11 Reason for Referral None Reported. Problems Name Problem SNOMED Code Status Onset Date Resolution Date Notes Provider Name and Address Organization Details Recorded Time Lumbosacral radiculopathy 3063851 Active Jackson mccormick MD [address] [facility] [address], [place], [address], [place] [facility] 15:08:40 Degeneration of lumbar intervertebral disc 81116804 Active 2020 Jackson mccormick MD [address] [facility] [facility] , [place] [address], [place], [address], [place] [facility] 15:08:52 Problem Notes None recorded. Procedures Surgical History Date Name Laterality Status Provider Name and Address Organization Details Recorded Time 03/09/20 25 Lumbar Epidural steroid injection under fluoroscopic guidance completed Jackson Retana MD [address] [facility] , [facility] [address], [place], [address], [place] [facility] 03/09/2025 13:26:03 03/04/20 24 Lumbar Epidural steroid injection under fluoroscopic guidance completed Jackson Retana MD [address] [facility] , [facility] [address], [place], [address], [place] [facility] 03/04/2024 16:00:22 10/09/20 23 Lumbar Epidural steroid injection under fluoroscopic guidance completed Jackson Retana MD [address] [facility] , [address], [place], [address], [place] [facility] 10/09/2023 16:08:28 03/19/20 23 Lumbar Epidural steroid injection under fluoroscopic guidance completed Jackson Retana MD [address] , [address], [place], [address], [place] [facility] 03/19/2023 14:02:50 05/21/20 22 Lumbar Epidural steroid injection under fluoroscopic guidance completed Jackson Retana MD [address] [facility] , [address], [place], [address], [place] [facility] 05/21/2022 15:11:26 11/21/19 22 Lumbar Epidural steroid injection under fluoroscopic guidance completed Jackson Retana MD [address] [facility] , [address], [place], [address], [place] [facility] 11/21/2021 09:54:22 05/08/20 21 Lumbar Epidural steroid injection under fluoroscopic guidance completed Jackson Retana MD [address] [facility] , [address], [place], [address], [place] [facility] 05/08/2021 10:15:21 Imaging Results None recorded. Procedure Notes None recorded. Medical Equipment None Reported. Allergies Allergen ID Allergen Name Allergen Category Reaction Reaction Severity Criticality Documentation Date Start Date Code Code System Note Provider Name and Address Organization Details Recorded Time 97680 Substance with sulfonami de structure and antibacte rial mechanism of action (substanc e) medicatio n Not available Not available Not available 03/21/2021 87787 8003 SNOMED Nanette Sherman n null, [place] - [facility] 14:42:07 Medications Name Sig Start Date Stop Date Status Note LastModified by Organization Details LastModified Time cyclobenzap rine 10 mg tablet TAKE 1 TABLET BY MOUTH ONCE DAILY AT BEDTIME NEEDED FOR MUSCLE SPASM 03/21 completed Not Available Not Available Not Available methocarbam ol 500 mg tablet TAKE 1 TABLET BY MOUTH EVERY 12 HOURS NEEDED FOR MUSCLE SPASM 03/21 completed Not Available Not Available Not Available neomycin-po lymyxin-hyd rocort 3.5 mg/mL-10,00 0 unit/mL-1 % ear solution INSTILL 1 DROP IN EACH AFFECTED EAR 4 TIMES A DAY 03/21 completed Not Available Not Available Not Available lisinopril 20 mg tablet TAKE 1 TABLET BY MOUTH EVERY DAY 03/21 completed Not Available Not Available Not Available amlodipine 5 mg tablet TAKE 1 TABLET BY MOUTH EVERY EVENING 02/04 completed Not Available Not Available Not Available amlodipine 10 mg tablet TAKE 1 TABLET BY MOUTH EVERY DAY active Not Available Not Available No t Available omeprazole 20 mg capsule,del ayed release TAKE 1 CAPSULE BY MOUTH EVERY DAY 03/21 completed Not Available Not Available Not Available lisinopril 20 mg-hydrochl orothiazide 25 mg tablet TAKE 1 TABLET BY MOUTH EVERY DAY active Not Available Not Available No t Available hydrochloro thiazide 25 mg tablet TAKE 1 TABLET BY MOUTH EVERY DAY IN THE MORNING 03/21 completed Not Available Not Available Not Available fluticasone propionate 50 mcg/actuati on nasal spray,suspe nsion USE 1 SPRAY INTO EACH NOSTRIL ONCE DAILY 03/21 completed Not Available Not Available Not Available cholecalcif tasha (vitamin D3) 125 mcg (5,000 unit) capsule TAKE 1 CAPSULE BY MOUTH ONCE WEEKLY FOR 3 MONTHS 02/04 completed Not Available Not Available Not Available naproxen 500 mg tablet TAKE 1 TABLET BY MOUTH TWICE A DAY NEEDED FOR PAIN 09/15 completed Not Available Not Available Not Available nabumetone 500 mg tablet TAKE 1 TABLET BY MOUTH TWICE A DAY NEEDED PAIN TAKE WITH FOOD 02/04 completed Not Available Not Available Not Available Dulcolax (bisacodyl) 5 mg tablet,willie yed release 02/04 completed Not Available Not Available Not Available cholecalcif tasha (vitamin D3) 1,250 mcg (50,000 unit) capsule TAKE 1 CAPSULE BY MOUTH ONCE WEEKLY. 02/04 completed Not Available Not Available Not Available diclofenac epolamine 1.3 % transdermal 12 hour patch APPLY 1 PATCH EVERY 12 HOURS NEEDED FOR PAIN, MODERATE 03/21 completed Not Available Not Available Not Available Purelax 17 gram/dose oral powder 02/04 completed Not Available Not Available Not Available EC-Naproxen 500 mg tablet,willie yed release TAKE 1 TABLET BY MOUTH EVERY 12 HOURS NEEDED FOR PAIN 03/21 completed Not Available Not Available Not Available Vitals Date Recorded Body height Heart rate Oxygen saturation Oxygen saturation in Arterial blood by Pulse oximetry Systolic blood pressure Diastolic blood pressure Provider Name and Address Organization Details Last Updated DateTime 3 180.34 cm 77 /min 98 % 98 % 148 mm[Hg] 92 mm[Hg] Stella jeronimo [place] - [facility] 3 15:25:20 Date Recorded Body height Heart rate Oxygen saturation Oxygen saturation in Arterial blood by Pulse oximetry Systolic blood pressure Diastolic blood pressure Provider Name and Address Organization Details Last Updated DateTime 4 180.34 cm 85 /min 95 % 95 % 137 mm[Hg] 80 mm[Hg] Ashleigh Roeosiel [place] - [facility] 4 15:36:24 Date Recorded Body height Heart rate Oxygen saturation Oxygen saturation in Arterial blood by Pulse oximetry Systolic blood pressure Diastolic blood pressure Provider Name and Address Organization Details Last Updated DateTime 4 180.34 cm 87 /min 97 % 97 % 145 mm[Hg] 84 mm[Hg] Stella jeronimo [place] [facility] 4 15:36:31 Date Recorded Body height Heart rate Oxygen saturation Oxygen saturation in Arterial blood by Pulse oximetry Body mass index (BMI) Body weight Systolic blood pressure Diastolic blood pressure Provider Name and Address Organization Details Last Updated DateTime 5 180.34 cm 64 /min 98 % 98 % 27.9 kg/m2 06361.4 7 g 141 mm[Hg] 88 mm[Hg] Jackson mccormick MD [address] , [address], [place], [address], [place] [facility] 5 09:38:04 Date Recorded Body height Body mass index (BMI) Body weight Systolic blood pressure Diastolic blood pressure Provider Name and Address Organization Details Last Updated DateTime 03/09/2025 180.34 cm 27.9 kg/m2 86334.47 g 162 mm[Hg] 92 mm[Hg] Jackson mccormick MD [address] , [address], [place], [address], [place] [facility] 5 13:05:16 Social History Question Answer Notes LastModified by Organizat ion Details LastModified Time Tobacco Smoking Status Never Smoker Nanette villasenor [place] [facility] 03/21/2021 14:45:06 Which Illicit Or Recreational Drugs Have You Used? None Information not available 03/21/2021 Marital Status Informati on not available 03/21/2021 Sex: Unknown Functional Status Question Answer Note LastModified by Organizat [employer] Details LastModified Time What is your level of alcohol consumption? 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 Never used electronic cigarettes Information not available 03/21/2021 Mental Status None recorded. Family History Relationship Description Onset Age of this Age Resolved Age Notes LastModified by Organization Details LastModified Time Father No current problems or disability Not available 14:55:07 Mother No current problems or disability Not available 14:55:07 Medical History Condition Response Coronary Artery Disease N Gout N Neuropathy/Neuralgia N Kidney Stones N Hyperthyroidism N Hypothyroidism N Depression N COPD N Anxiety Disorder N Arthritis Y Cancer N Stroke N HIV/AIDS N High Cholesterol N Liver Disease N Fibromyalgia N Irritable Bowel Syndrome N Kidney Disease N Migrane N Diabetes N Seizures/Epilepsy N Hyperlipidemia N Asthma N Bipolar Disorder N GERD/Reflux N Pulmonary Embolism N Hypertension Y Osteoporosis N Past Encounters Encounter ID Performer Location Encounter Start Date Encounter Closed Date Diagnosis/Indication Diagnosis SNOMED-CT Code Diagnosis ICD10 Code Diagnosis Note [id number] Jackson Retana MD PAIN OFFICE [address] [employer],[address] [facility] [place] [place] [place] [address] 03/21/2021 14:33:31 03/21/2021 15:38:18 Degeneration of lumbar intervertebral disc 23060911 M51.36 Lumbosacra l radiculopathy 2214601 M54.17 [id number] Jackson Retana MD PAIN OFFICE [address] [employer] [employer],[address] [facility] [place] [address] 04/18/2021 12:53:03 04/18/2021 13:33:39 Degeneration of lumbar intervertebral disc 82580205 M51.36 Lumbosacra l radiculopathy 6170366 M54.17 [id number] Jackson Retana MD [facility] PA[facility] [address] [facility] [place] [address] 05/08/2021 09:39:22 05/08/2021 10:19:35 Degeneration of lumbar intervertebral disc 18413096 M51.36 Lumbosacra l radiculopathy 2685509 M54.17 [id number] Jackson Retana MD [facility] PAIN OFFICE [address] [facility] [place] [address] 06/07/2021 13:07:04 06/07/2021 14:52:18 Degeneration of lumbar intervertebral disc 16133588 M51.36 Lumbosacra l radiculopathy 0194845 M54.17 [id number] Jackson Retana MD [facility] PAIN OFFICE [address] [facility] [place] [address] 11/21/2021 08:43:23 11/21/2021 10:01:41 Degeneration of lumbar intervertebral disc 02529988 M51.36 Lumbosacra l radiculopathy 7277042 M54.17 [id number] Jackson Retana MD PAIN OFFICE [address] [place] [address] 05/21/2022 14:48:50 05/21/2022 15:23:20 Degeneration of lumbar intervertebral disc 73893665 M51.36 Lumbosacra l radiculopathy 8277085 M54.17 [id number] Jackson Retana MD [facility] PAIN OFFICE [address] [facility] [place] [address] 09/16/2022 14:13:56 09/16/2022 16:02:37 Lumbosacral radiculopathy 9943400 M54.17 Degenerati on of lumbar intervertebral disc 05790589 M51.36 [id number] Jackson Retana MD [facility] PAIN OFFICE [address] [place] [address] 12/18/2022 14:53:28 12/18/2022 16:10:47 Lumbosacral radiculopathy 6485569 M54.17 Degenerati on of lumbar intervertebral disc 34100971 M51.36 [id number] Jackson Retana MD [facility] PAIN OFFICE [address] [place] [address] 03/19/2023 10:33:05 03/19/2023 14:29:08 Lumbosacral radiculopathy 4351558 M54.17 Degenerati on of lumbar intervertebral disc 18282995 M51.36 [id number] Jackson Retana MD [facility] PAIN OFFICE [address] [place] [address] 09/15/2023 12:46:55 09/15/2023 14:01:58 Lumbosacral radiculopathy 9907663 M54.17 Degenerati on of lumbar intervertebral disc 16987537 M51.36 [id number] Jackson Retana MD [facility] PAIN OFFICE [address] [facility] [place] [address] 10/09/2023 15:02:50 10/09/2023 16:11:25 Lumbosacral radiculopathy 1948607 M54.17 Degenerati on of lumbar intervertebral disc 20874428 M51.36 [id number] Jackson Retana MD [facility] PAIN OFFICE [address] [place] [address] 02/16/2024 15:23:15 02/16/2024 15:59:29 Lumbosacral radiculopathy 4316681 M54.17 Degenerati on of lumbar intervertebral disc 22748249 M51.36 [id number] Jackson Retana MD [facility] PAIN OFFICE [address] [place] [address] 03/04/2024 15:16:59 03/04/2024 16:06:42 Lumbosacral radiculopathy 2578018 M54.17 Degenerati on of lumbar intervertebral disc 49795022 M51.36 [id number] Jackson Retana MD PAIN OFFICE [address] [place] [address] 02/04/2025 09:28:08 02/07/2025 15:05:54 Lumbosacral radiculopathy 0855599 M54.17 Degenerati on of lumbar intervertebral disc 45277775 M51.361 [id number] Jackson Retana MD PAIN OFFICE [address] [facility] [place] [address] 03/09/2025 12:57:39 03/09/2025 15:17:11 Lumbosacral radiculopathy 2335774 M54.17 Degenerati on of lumbar intervertebral disc 62669003 M51.362 Health Concerns Section Related Observation LastModified by Organization Detai ls LastModified Time None Recorded Concern Status LastModified by Organization Details LastModified Time None Recorded Advance Directives Directive None Recorded Payers Encounter Date Sequence Insurance Name Policy Number Policy Desai Covered Member ID Desai Member ID Guarantor Name 10/09/2023 1 [employer] (POS) [id number] Amado Hernandezsitasilvia [id number] Amado Lobo 02/16/2024 1 [facility] Amado Lobo [id number] Ronnyjavi Yamil 03/04/2024 1 [facility] Amado Lobo [id number] Amado Lobo 02/04/2025 1 [facility] Amado Lobo [id number] Amado Lobo 03/09/2025 1 [facility] Amado Lobo [id number] Ronny[place]i Hernandezheather Notes Date Note Type Note Provider Name and Address Organization Details Recorded Time 10/09/2023 text/html He is here today for a lumbar epidural steroid injection under fluoroscopic guidance. Jackson Retana MD [address] , [address], [place], [address], [facility] - Pain Management 10/09/2023 16:17:27 02/16/2024 text/html Amado Lobo is a 53 year old man with complaints of low back pain radiating into left lower extremity. He states he has been having low back pain for the past 6-7 years. He started to have severe pain radiating into left lower extremity. He describes the pain as a shooting pain , sharp from his left buttock region. Current pain level is 5-10/10. Pain is aggravated by running and jumping and climbing stairs and walking . Pain is relieved a little with application of heat. He has no history of bladder or bowel incontinence.MRI Lumbar spine done in 2020 shows At T11-T12 there is mild spinal canal stenosis and severe left neural foraminal stenosis with compression of the exiting T11 nerve root. At L3-L4 there is mild spinal canal stenosis and bilateral subarticular stenosis and abutment of the exiting right L3 nerve root. At L4-L5 there is left subarticular extrusion causing compression of the traversing left L5 nerve root. Mild to moderate spinal canal stenosis. Mild compression of the exiting left L4 nerve root and abutment of the exiting right L4 nerve root. Pain is interfering with work and sleep.He has trialed chiropractic therapy with some pain benefit. He is doing a home exercise program with persistent pain.He is taking tylenol and occasionally Naproxen. He has acute exacerbations of his low back pain when he is unable to do anything for three weeks.He had a lumbar epidural steroid injection on 10/09/2023 and reports 90% pain relief for three months with a slow return of pain . Pain is back to baseline. He states he is very active after the epidural injections. Jackson Retana MD [address] [facility] , [address], [place], [address], [facility] 02/17/2024 08:56:26 03/04/2024 text/html He is here today for a lumbar epidural steroid injection under fluoroscopic guidance. Jackson Retana MD [address] [facility] , [address], [place], [address], [facility] 03/04/2024 16:13:51 02/04/2025 text/html Amado Lobo is a 63 year old man with complaints of low back pain radiating into left lower extremity. He states he has been having low back pain for the past 6-7 years. He started to have severe pain radiating into left lower extremity. He describes the pain as a shooting pain , sharp from his left buttock region. Current pain level is 5-10/10. Pain is aggravated by running and jumping and climbing stairs and walking . Pain is relieved a little with application of heat. He has no history of bladder or bowel incontinence.MRI Lumbar spine done in 2020 shows At T11-T12 there is mild spinal canal stenosis and severe left neural foraminal stenosis with compression of the exiting T11 nerve root. At L3-L4 there is mild spinal canal stenosis and bilateral subarticular stenosis and abutment of the exiting right L3 nerve root. At L4-L5 there is left subarticular extrusion causing compression of the traversing left L5 nerve root. Mild to moderate spinal canal stenosis. Mild compression of the exiting left L4 nerve root and abutment of the exiting right L4 nerve root. Pain is interfering with work and sleep.He has trialed chiropractic therapy with some pain benefit. He is doing a home exercise program with persistent pain.He is taking tylenol and occasionally Naproxen. He has acute exacerbations of his low back pain when he is unable to do anything for three weeks.He had a lumbar epidural steroid injection on 03/04/2024 and reports 90% pain relief for three months with a slow return of pain . Pain is back to baseline. He states he is very active after the epidural injections. Jackson Retana MD [address] [facility] , [address], [place], [address], [facility] - Pain Management 02/07/2025 15:30:27 03/09/2025 text/html He is here today for a lumbar epidural steroid injection under fluoroscopic guidance. Jackson Retana MD [address] [facility] , [address], [place], [address], [facility] - Pain Management 03/09/2025 15:18:52
== END 2025-03-15 14:41 | disposition home or self-care (01) ==
LOC: HO.HMCC 13:55
PROVIDERS: PCP Internal Medicine; Visit Provider Internal Medicine
DX: I10 Essential (primary) hypertension (principal); Z12.5 Encounter for screening for malignant neoplasm of prostate

== ENCOUNTER 2025-03-26 06:37 | Outpatient (REF) | payer OTHER, SELFPAY ==
--- OUTSIDE RECORDS SUMMARY | 2025-03-26 06:39 | XMS_ITS | Data Portability ---
Author Organization [place] - [facility], PAIN OFFICE Address [address] [facility] [address] [place] [address] Care Team Providers Care Bulkhead Carpenter Name Role Phone ZABRINA SALEH Primary Care Provider [phone] Assessment Encounter Date Assessment Date Assessment LastModified [...] . The risks and benefits of the procedure were discussed in detail. He wishes to [...] recommended. The risks and benefits of the procedure were discussed in detail. He wishes to proceed. He needs a scoop driver on the day of the procedure. [...] . The risks and benefits of the procedure were discussed in detail. He wishes to [...] recommended. The risks and benefits of the procedure were discussed in detail. He wishes to proceed. He needs a scoop driver on the day of the procedure. He is doing physical therapy and he plans to see a neurosurgeon and needs an updated MRI. [email or web address] Not available 02/07/2025 13:57:33 03/09/2025 03/09/2025 Amado [...] . The risks and benefits of the procedure were discussed in detail. He wishes to proceed. He can follow up as needed. [email or web address] Not available 03/09/2025 13:26:27 Plan of Treatment [...] By Organization Details Last Modified Time 10/09/2023 [id number] He was advised against bed rest lasting longer than four days and to continue activities as tolerated. [email or web address] Not available 10/09/2023 16:03:47 02/16/2024 [id number] He was advised against bed rest lasting longer than four days and to continue activities as tolerated. [email or web address] Not available 02/16/2024 15:57:33 03/04/2024 [id number] He was advised against bed rest lasting longer than four days and to continue activities as tolerated. [email or web address] Not available 03/04/2024 15:59:36 02/04/2025 [id number] He was advised against bed rest lasting longer than four days and to continue activities as tolerated. [email or web address] Not available 02/07/2025 13:57:38 03/09/2025 [id number] He was advised against bed rest lasting longer than four days and to continue activities as tolerated. [email or web address] Not available 03/09/2025 13:25:11 Reason for Referral None Reported. Problems Name Problem SNOMED Code Status Onset Date Resolution Date Notes Provider Name and Address Organization Details Recorded Time Lumbosacral radiculopathy 2015073 Active Jackson mccormick MD [address] , [address], [place], [address], [place] [facility] 15:08:40 Degeneration of lumbar intervertebral disc 44505768 Active 2020 Jackson mccormick MD [address] , [address], [place], [address], [place] [facility] 15:08:52 Problem Notes None recorded. Procedures Surgical History Date Name Laterality Status Provider Name and Address Organization Details Recorded Time 03/09/20 25 Lumbar Epidural steroid injection under fluoroscopic guidance completed Jackson Retana MD [address] , [address], [place], [address], [place] [facility] 03/09/2025 13:26:03 03/04/20 24 Lumbar Epidural steroid injection under fluoroscopic guidance completed Jackson Retana MD [address] , [address], [place], [address], [place] [facility] 03/04/2024 16:00:22 10/09/20 23 Lumbar Epidural steroid injection under fluoroscopic guidance completed Jackson Retana MD [address] , [address], [place], [address], [place] [facility] 10/09/2023 16:08:28 03/19/20 23 Lumbar Epidural steroid injection under fluoroscopic guidance completed Jackson Retana MD [address] [facility] , [address], [place], [address], [place] [facility] 03/19/2023 14:02:50 05/21/20 22 Lumbar Epidural steroid injection under fluoroscopic guidance completed Jackson Retana MD [address] [facility] , [address], [place], [address], [place] [facility] 05/21/2022 15:11:26 11/21/19 22 Lumbar Epidural steroid injection under fluoroscopic guidance completed Jackson Retana MD [address] [facility] , [address], [place], [address], [place] [facility] 11/21/2021 09:54:22 05/08/20 21 Lumbar Epidural steroid injection under fluoroscopic guidance completed Jackson Retana MD [address] [facility] , [address], [place], [address], [place] [facility] 05/08/2021 10:15:21 Imaging Results None recorded. Procedure Notes None recorded. Medical Equipment None Reported. Allergies Allergen ID Allergen Name Allergen Category Reaction Reaction Severity Criticality Documentation Date Start Date Code Code System Note Provider Name and Address Organization Details Recorded Time 29038 Substance with sulfonami de structure and antibacte rial mechanism of action (substanc e) medicatio n Not available Not available Not available 03/21/2021 06428 8003 SNOMED Nanette Sherman n [place], [place] [facility] 14:42:07 Medications Name [...] EACH AFFECTED EAR 4 TIMES A DAY 05/26 /2021 completed Not Available Not Available Not Available [...] /min 98 % 98 % 27.9 kg/m2 15519.4 7 g 141 mm[Hg] 88 mm[Hg] Jackson mccormick MD [address] , [address], [place], [address], [place] [facility] 5 09:38:04 Date Recorded Body height Heart rate Oxygen saturation Oxygen saturation in Arterial blood by Pulse oximetry Systolic blood pressure Diastolic blood pressure Provider Name and Address Organization Details Last Updated DateTime 4 180.34 cm 85 /min 95 % 95 % 137 mm[Hg] 80 mm[Hg] Ashleigh Slefminnie [place] [facility] 4 15:36:24 Date Recorded Body height Heart rate Oxygen saturation Oxygen saturation in Arterial blood by Pulse oximetry Systolic blood pressure Diastolic blood pressure Provider Name and Address Organization Details Last Updated DateTime 4 180.34 cm 87 /min 97 % 97 % 145 mm[Hg] 84 mm[Hg] Stella Pellegrin o [place] [facility] 4 15:36:31 Date Recorded Body height Body mass index (BMI) Body weight Systolic blood pressure Diastolic blood pressure Provider Name and Address Organization Details Last Updated DateTime 03/09/2025 180.34 cm 27.9 kg/m2 04467.47 g 162 mm[Hg] 92 mm[Hg] Jackson mccormick MD [address] , [address], [place], [address], [place] [facility] 5 13:05:16 Date Recorded Body height Heart rate Oxygen saturation Oxygen saturation in Arterial blood by Pulse oximetry Systolic blood pressure Diastolic blood pressure Provider Name and Address Organization Details Last Updated DateTime 3 180.34 cm 77 /min 98 % 98 % 148 mm[Hg] 92 mm[Hg] Stella Pellegrin o [place] [facility] 3 15:25:20 Social History Question Answer Notes LastModified by Organizat ion Details LastModified Time Tobacco Smoking Status Never Smoker Nanette villasenor [facility] 03/21/2021 14:45:06 Which Illicit Or Recreational Drugs Have You Used? None Information not available 03/21/2021 Marital Status Informati on not available 03/21/2021 Sex: Unknown Functional Status Question Answer Note LastModified by Organizat ion Details LastModified Time What is your level of alcohol consumption? 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 [employer] Information not available 03/21/2021 Do you or [...] N Hypothyroidism N Depression N COPD N Migrane N Diabetes N Anxiety Disorder N Arthritis Y Seizures/Epilepsy N Hyperlipidemia N Cancer N Stroke N Asthma N HIV/AIDS N Bipolar Disorder N High Cholesterol N GERD/Reflux N Liver Disease N Pulmonary Embolism N Fibromyalgia N Irritable Bowel Syndrome N Hypertension Y Osteoporosis N Kidney Disease N Past Encounters Encounter ID Performer Location Encounter Start Date Encounter Closed Date Diagnosis/Indication Diagnosis SNOMED-CT Code Diagnosis ICD10 Code Diagnosis Note [id number] Jackson Retana MD PAIN OFFICE [address] [facility] [place] [address] 03/21/2021 14:33:31 03/21/2021 15:38:18 Degeneration of lumbar intervertebral disc 59450688 M51.36 Lumbosacra l radiculopathy 1110857 M54.17 [id number] Jackson Retana MD PAIN OFFICE [address] [facility] [place] [address] 04/18/2021 12:53:03 04/18/2021 13:33:39 Degeneration of lumbar intervertebral disc 15513550 M51.36 Lumbosacra l radiculopathy 8735251 M54.17 [id number] Jackson Retana MD [facility] [address] [facility] [place] [address] 05/08/2021 09:39:22 05/08/2021 10:19:35 Degeneration of lumbar intervertebral disc 06188967 M51.36 Lumbosacra l radiculopathy 1844997 M54.17 [id number] Jackson Retana MD [facility] PA[facility] [address] [facility] [place] [address] 06/07/2021 13:07:04 06/07/2021 14:52:18 Degeneration of lumbar intervertebral disc 48330364 M51.36 Lumbosacra l radiculopathy 7558280 M54.17 [id number] Jackson Retana MD [facility] PAIN OFFICE [address] [facility] [place] [address] 11/21/2021 08:43:23 11/21/2021 10:01:41 Degeneration of lumbar intervertebral disc 58519426 M51.36 Lumbosacra l radiculopathy 3596912 M54.17 [id number] Jackson Retana MD [facility] PAIN OFFICE [address] [facility] [place] [address] 05/21/2022 14:48:50 05/21/2022 15:23:20 Degeneration of lumbar intervertebral disc 07745923 M51.36 Lumbosacra l radiculopathy 9001459 M54.17 [id number] Jackson Retana MD [facility] PAIN [facility] [address] [facility] [place] [address] 09/16/2022 14:13:56 09/16/2022 16:02:37 Lumbosacral radiculopathy 9706661 M54.17 Degenerati on of lumbar intervertebral disc 76004367 M51.36 [id number] Jackson Retana MD [facility] PAIN OFFICE [address] [facility] [place] [address] 12/18/2022 14:53:28 12/18/2022 16:10:47 Lumbosacral radiculopathy 8032315 M54.17 Degenerati on of lumbar intervertebral disc 61688019 M51.36 [id number] Jackson Retana MD PAIN OFFICE [address] [facility] [place] [address] 03/19/2023 10:33:05 03/19/2023 14:29:08 Lumbosacral radiculopathy 4812990 M54.17 Degenerati on of lumbar intervertebral disc 22312047 M51.36 [id number] Jackson Retana MD [facility] PAIN OFFICE [address] [facility] [place] [address] 09/15/2023 12:46:55 09/15/2023 14:01:58 Lumbosacral radiculopathy 5284507 M54.17 Degenerati on of lumbar intervertebral disc 93324815 M51.36 [id number] Jackson Retana MD PAIN OFFICE [address] [facility] [place] [address] 10/09/2023 15:02:50 10/09/2023 16:11:25 Lumbosacral radiculopathy 8670077 M54.17 Degenerati on of lumbar intervertebral disc 05217846 M51.36 [id number] Jackson Retana MD PAIN OFFICE [address] [facility] [place] [address] 02/16/2024 15:23:15 02/16/2024 15:59:29 Lumbosacral radiculopathy 5048134 M54.17 Degenerati on of lumbar intervertebral disc 40718718 M51.36 [id number] Jackson Retana MD PAIN OFFICE [address] [facility] [place] [address] 03/04/2024 15:16:59 03/04/2024 16:06:42 Lumbosacral radiculopathy 4866952 M54.17 Degenerati on of lumbar intervertebral disc 50436648 M51.36 [id number] Jackson Retana MD PAIN OFFICE [address] [place] [address] 02/04/2025 09:28:08 02/07/2025 15:05:54 Lumbosacral radiculopathy 8135053 M54.17 Degenerati on of lumbar intervertebral disc 09350760 M51.361 [id number] Jackson Retana MD PAIN OFFICE [address] [facility] [place] [address] 03/09/2025 12:57:39 03/09/2025 15:17:11 Lumbosacral radiculopathy 9723275 M54.17 Degenerati on of lumbar intervertebral disc 63172309 M51.362 Health Concerns Section Related Observation LastModified by Organization Detai ls LastModified Time None Recorded Concern Status LastModified by Organization Details LastModified Time None Recorded Advance Directives Directive None Recorded Payers Encounter Date Sequence Insurance Name Policy Number Policy Desai Covered Member ID Desai Member ID Guarantor Name 10/09/2023 1 [employer] (POS) [id number] Amado Lobo [id number] Ronnyjavi Hernandezheather 02/16/2024 1 [facility] ([facility] Amado Lobo [id number] Ronnyjavi Yamil 03/04/2024 1 [facility] ([facility]) Ronnyjavi Yamil [id number] Ronnyjavi Yamil 02/04/2025 1 [facility] ([facility]) Amado Lobo [id number] Amado Lobo 03/09/2025 1 [facility] ([facility]) Amado Lobo [id number] Ronnyjavi Hernandezsitasilvia Notes Date Note Type Note Provider Name and Address Organization Details Recorded Time 10/09/2023 text/html He is here today for a lumbar epidural steroid injection under fluoroscopic guidance. Jackson Retana MD [address] [facility] , [address], [place], [address], [facility] - Pain Management 10/09/2023 16:17:27 02/16/2024 text/html [...] the epidural injections. Jackson Retana MD [address] [facility] , [address], [place], [address], [facility] Pain Management 02/17/2024 08:56:26 03/04/2024 text/html He is here today for a lumbar epidural steroid injection under fluoroscopic guidance. Jackson Retana MD [address] [facility] , [address], [place], [address], [facility] Pain Management 03/04/2024 16:13:51 02/04/2025 text/html [...] the epidural injections. Jackson Retana MD [address] [facility] , [address], [place], [address], [facility] - Pain Management 02/07/2025 15:30:27 03/09/2025 text/html He is here today for a lumbar epidural steroid injection under fluoroscopic guidance. Jackson Retana MD [address] [facility] , [address], [place], [address], [facility] - Pain Management 03/09/2025 15:18:52
[2025-03-26 12:14] LABS: Alanine Aminotransferase 52 U/L (0-40); Anion Gap 11 (12-20); Aspartate Amino Transferase 32 U/L (5-37); Blood Urea Nitrogen 20 mg/dL (9-16); Calcium 9.3 mg/dL (8.4-10.2); Carbon Dioxide 24 mmol/L (22-29); Chloride 109 mmol/L (96-108); Cholesterol 222 mg/dL (<200); Estimated Glomerular Filt Rate > 60; Glucose Fasting 92 mg/dL (60-99); HDL Cholesterol 52 mg/dL (>40); LDL Cholesterol Calculated 156 mg/dL (<100); Potassium 3.5 mmol/L (3.3-5.1); Sodium 140 mmol/L (135-145); Triglycerides 72 mg/dL (<150)
[2025-03-26 12:32] LABS: PSA,Total (Free>4and<10) 0.32 ng/mL (0.00-4.00)
== END 2025-03-26 06:38 | disposition home or self-care (01) ==
LOC: HO.HMGCLDS 06:37
PROVIDERS: PCP Internal Medicine; Visit Provider Internal Medicine
DX: I10 Essential (primary) hypertension (principal); E78.00 Pure hypercholesterolemia, unspecified; Z12.5 Encounter for screening for malignant neoplasm of prostate
CPT/HCPCS: 36415; 80048; 80061; 84153; 84450; 84460

== ENCOUNTER 2025-09-07 15:43 | Outpatient (AMB) | payer OTHER, SELFPAY ==
--- NOTE | 2025-09-07 16:06 | MHC.PC.OV ---
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 Required: No Allergies Sulfa (Sulfonamide Antibiotics) Allergy (Unknown, Verified 09/07/25 16:44) Rash Medication List - Last Reconciled 09/17/25 by Jeanna Christensen MD amlodipine 10 mg PO DAILY atenolol 50 mg PO DAILY lisinopril-hydrochlorothiazide 20-25 mg 1 tab PO DAILY Tobacco use date assessed: 09/07/25 Dental Screening Dental Screen Date: 09/07/25 Did you have a dental visit in the last 12 months?: Yes Did you have a dental problem in the last 6 months where you did not have access to dental care?: No Was dental information given to patient?: Patient has dentist HPI HPI Comments History of Present Illness Details 55-year-old male with past medical history significant for hypertension, here today for follow-up. He has been having recurrent low back pain, MRI of the lumbar spine showed degenerative disc disease in lumbar spine particularly at level of L4-L5. He has tried epidural steroid injections which has not afforded any significant improvement. Denies experiencing any urine or stool incontinence, no numbness or tingling in extremities, no weakness reported. [facility] Medical History (Updated 09/07/25 @ 17:00 by Jeanna Christensen MD) Degenerative lumbar spinal stenosis Uncontrolled hypertension Hyperlipidemia Degenerative thoracic spinal stenosis Spinal stenosis of lumbar region with radiculopathy Family history of dissecting aortic aneurysm Internal hemorrhoid Diverticulosis Vitamin D deficiency Hypertriglyceridemia Low back pain potentially associated with radiculopathy Heartburn symptom Lumbago Tetanus, diphtheria, and acellular pertussis (Tdap) vaccination declined Influenza vaccination declined Essential hypertension Surgical History Hx of colonoscopy History of esophagogastroduodenoscopy (EGD) No pertinent past surgical history Family History Father Dissecting aortic aneurysm (any part), thoracic Mother Mental health disorder Essential hypertension Brother No problems noted. Sister No problems noted. Daughter No problems noted. Maternal Grandmother Diabetes mellitus Social History Housing: House Alcohol intake: current Alcohol intake frequency: a few times a month Patient Tobacco Use Status: Former Tobacco user Years Smoked: 6 months e-Cigarette/Vaping Use: Never Used service: No Current occupational status: employed Cognitive needs: No Hearing needs: No Vision needs: Yes Questionnaire PHQ-9 Over the last 2 weeks, how often have you been bothered by any of the following problems? 1. Little interest or pleasure in doing things: not at all 2. Feeling down, depressed, or hopeless: not at all 3. Trouble falling or staying asleep, or sleeping too much: not at all 4. Feeling tired or having little energy: not at all 5. Poor appetite or overeating: not at all 6. Feeling bad about yourself - or that you are a failure or have let yourself or your family down: not at all 7. Trouble concentrating on things, such as reading the newspaper or watching television: not at all 8. Moving or speaking so slowly that other people could have noticed. Or the opposite - being so fidgety or restless that you have been moving around a lot more than usual: not at all 9. Thoughts that you would be better off or of hurting yourself in some way: not at all Total score: 0 Depression Screening Interpretation: Negative Depression Screening Done: Yes Source: Developed by Drs. Joshua Valentino, Nayeli Keene, Irineo Chung and colleagues, with an educational pato from [employer]. Thrive Questionnaire Date Thrive assessed: 11/30/24 I am a: Patient What is your living situation today?: I have a steady place to live Within the past 12 months, did the food you bought not last and you didn't have the money to get more?: I choose not to answer this question Within the past 12 months, did you worry whether your food would run out before you got money to buy more?: I choose not to answer this question Do you have trouble paying for medicines?: No Do you have trouble getting transportation to medical appointments?: No Do you have trouble paying your heating and electricity bill?: No Do you have trouble taking care of your child, family member or friend?: No Do you have trouble with day-to-day activities such as bathing, preparing meals, shopping, managing finances, etc.?: No Are you currently unemployed and looking for a job?: No Are you interested in more education?: No Please select the resources that you would like help with: None Currently or been in a relationship where the following occur: I choose not to answer THRIVE Score: 0 AUDIT C Alcohol Use Questionnaire (AUDIT-C) 1. How often do you have a drink containing alcohol?: Monthly or less 2. How many drinks containing alcohol do you have on a typical day when you are drinking?: 1 or 2 3. How often do you have six or more drinks on one occasion?: Less than monthly Total Score: 2 NICOLÁS-7 AMB Questionnaire NICOLÁS-7 Date NICOLÁS - 7 assessed: 11/30/24 Feeling nervous, anxious, or on edge: 0 = Not at all Not being able to stop or control worryin = Not at all Worrying too much about different things: 0 = Not at all Trouble relaxin = Not at all Being so restless that it is hard to sit still: 0 = Not at all Becoming easily annoyed or irritable: 0 = Not at all Feeling afraid as if something awful might happen: 0 = Not at all Total NICOLÁS-7 score (0-4 normal; 5-9 mild; 10-14 moderate; 15-21 severe): 0 Source: Developed by Drs. Joshua Valentino, Nayeli Keene, Irineo Chung and colleagues, with an educational pato from [employer]. Review of Systems Const All systems reviewed & are unremarkable except as noted in HPI and below Physical exam (Primary Care) Vital Signs: Last Vital Signs Temp 97.5 F 09/07/25 16:45 Pulse 73 09/07/25 16:45 Resp 16 09/07/25 16:45 BP 138/80 09/07/25 16:45 Pulse Ox 99 09/07/25 16:45 Oxygen Delivery Method Room Air 09/07/25 16:45 BMI result Body Mass Index 24.8 Tobacco/Smoking Status: Tobacco use Status Tobacco use date assessed 09/07/25 09/07/25 16:07 Patient Tobacco Use Status Former Tobacco user 09/07/25 16:07 e-Cigarette/Vaping Use Never Used 09/07/25 16:07 PHQ-9: PHQ-9 Score PHQ-9: Total score 0 09/07/25 17:02 Depression Screening Interpretation: Negative Thrive Assessment: Date of Thrive Assessment Date Thrive assessed 11/30/24 09/07/25 16:07 Currently or been in a relationship where the following occur: I choose not to answer Const General: comfortable and no acute distress Orientation/consciousness: patient oriented x3 Eyes General: appearance normal, both eyes and all related structures Neck Neck: Yes full ROM, Yes no lymphadenopathy and Yes supple Resp Effort & Inspection: normal respiratory effort and able to speak in complete sentences Auscultation: clear to auscultation bilaterally Cardio Rate: regular rate Rhythm: regular rhythm Heart sounds: S1 normal heart sound present and S2 normal heart sound present Back/Spine/Pelvis Cervical Spine: normal cervical lordosis and cervical ROM normal Thoracic/Lumbar Spine: straight leg raise negative bilaterally, pain with thoraco-lumbar ROM and paraspinal muscle tenderness Neuro General: patient oriented x3, gait normal, tone normal, moves all extremities, Normal light touch and pain sensation and no focal motor deficits Cognition (Neuro): normal cognition Gait exam (Neuro): Normal gait present Motor exam (neuro): 5/5 motor strength present throughout Extrem General: Yes full ROM, Yes no joint enlargement, Yes no pedal edema, Yes no calf tenderness and Yes normal gait Coding Level of Care Code Est Pt Level 3 (77328) Diagnoses Degenerative lumbar spinal stenosis M48.061 Assessment & Plan Assessment & Plan (1) Degenerative lumbar spinal stenosis: Code(s): M48.061 - Spinal stenosis, lumbar region without neurogenic claudication Category: Medical Plan: physiatry consult ordered Orders: Referrals Physiatry Referral M48.061 - Spinal stenosis, lumbar region without neurogenic claudication
[2025-09-07 16:45] VITALS: BP 138/80; PULSE 73; RESP 16; TEMP 36.4; O2SAT 99; BMI 24.8
--- OUTSIDE RECORDS SUMMARY | 2025-09-07 18:47 | XMS_ITS | Patient Health Record ---
Author Organization [facility] Address [address] [place] [address] Care Team Providers Care Contact Worker Name Role Phone Amparo LIN, Jeanna Primary Care Provider Carroll Brown Jr Unavailable Allergies Allergen (clinical drug ingredient) Drug/Non Drug Allergy documented on EMR Reaction Allergy Type Onset Date Status Substance with sulfonamide structure and antibacterial mechanism of action (substance) Sulfa (uncoded) Unknown Allergy Active Reason For Referral No Information Medications Medication SIG (Take, Route, Frequency, Duration) Notes Start Date End Date Status MiraLax (colon prep) 8.3 ounce ((238) grams mixed with Gatorade or Crystal Light orally begin at 5:00 p.m. the day before the procedure; Duration: 1 day 07/21/2019 Active Lisinopril 20 MG 1 tablet Orally Once a day; Duration: 30 day(s) Active Immunizations Vaccine Route Administration Date Status Comme nts Influenza Unknown 07/21/2019 Refused Social History Tobacco Use: Social History Observation Description Date Details (start date - stop date) Never Smoker NA - NA Tobacco Use/Smoking Question Answer Notes Patient is a nonsmoker Alcohol Screen Question Answer Notes Did you have a drink contain ing alcohol in the past year? Yes How often did you have a dri nk containing alcohol in the past year? Monthly or less (1 point) How many drinks did you have on a typical day when you were drinking in the past year? 1 or 2 drinks (0 point) How often did you have 6 or more drinks on one occasion in the past year? Never (0 point) Points 1 Interpretation Negative Problems Problem Type SNOMED Code ICD Code Onset Dates Problem Status W/U Status Risk Notes Problem Colon cancer screening (404067495) Colon cancer screening (Z12.11) Active confirmed Problem Pre-procedure evaluation check (508192365) Encounter for other preprocedural examination (Z01.818) Active confirmed Plan Of Treatment Future Test Test Name Order Date COLONOSCOPY 07/21/2019 Insurance Providers Payer Name Payer Address Payer Phone Subscriber Number Group Number Insured Name Patient Relationship to Insured Coverage Start Date Coverage End Date [employer] [address] [place] [phone] [id number] DAYANARA OCHOA Self - patient is the insured Medical (General) History Medical History History ICD Code hypertension elevated triglycerides Surgical History Surgery Date(Month/Year)
--- OUTSIDE RECORDS SUMMARY | 2025-09-07 18:47 | XMS_ITS | Data Portability ---
Author Organization [place] [facility] Address [address] [facility],[facility] [address] [place] [address] Care Team Providers Care Cheese Cutter Name Role Phone ZABRINA SALEH Primary Care [...] He wishes to proceed. He needs a coal tram driver on the day of the procedure. [...] He wishes to proceed. He needs a coal tram driver on the day of the procedure. [...] Organization Details Last Modified Time Details Appointments None record ed. Lab None record ed. Referral None record ed. Procedures None record ed. Surgeries None record ed. Imaging None record ed. Medication Orders None record ed. Patient TargetsNo targets recorded. Patient Instructions Encounter Date Encounter Id Patient Instructions Last Modified By Organization Details Last Modified Time 10/09/2023 [id number] He was advised against bed rest lasting longer than four days and to continue activities as tolerated. [email or web address] Not available 10/09/2023 16:03:47 02/16/2024 [id number] He was advised against bed rest lasting longer than four days and to continue activities as tolerated. [email or web address] Not available 02/16/2024 15:57:33 03/04/2024 [id number] He was advised against bed rest lasting longer than four days and to continue activities as tolerated. [email or web address] Not available 03/04/2024 15:59:36 02/04/2025 [id number] He was advised against bed rest lasting longer than four days and to continue activities as tolerated. [email or web address] Not available 02/07/2025 13:57:38 03/09/2025 [id number] He was advised against bed rest lasting longer than four days and to continue activities as tolerated. [email or web address] Not available 03/09/2025 13:25:11 Reason for Referral None Reported. Problems Name Problem SNOMED Code Status Onset Date Resolution Date Notes Provider Name and Address Organization Details Recorded Time Lumbosacral radiculopathy 9579359 Active Jackson mccormick MD [address] , [address], [place], [address], [place] [facility] 15:08:40 Degeneration of lumbar intervertebral disc 15947735 Active 2020 Jackson mccormick MD [address] , [address], [place], [address], [place] [facility] 15:08:52 Problem Notes None recorded. Procedures Surgical History Date Name Laterality Status Provider Name and Address Organization Details Recorded Time 03/09/20 25 Lumbar Epidural steroid injection under fluoroscopic guidance completed Jackson Retana MD [address] , [address], [place], [address], [place] [facility] 03/09/2025 13:26:03 03/04/20 24 Lumbar Epidural steroid injection under fluoroscopic guidance completed Jackson Retana MD [address] , [address], [place], [address], [place] [facility] 03/04/2024 16:00:22 10/09/20 23 Lumbar Epidural steroid injection under fluoroscopic guidance completed Jackson Retana MD [address] , [address], [place], [address], [place] [facility] 10/09/2023 16:08:28 03/19/20 23 Lumbar Epidural steroid injection under fluoroscopic guidance completed Jackson Retana MD [email or web address] , [address], [place], [address], [place] [facility] 03/19/2023 14:02:50 05/21/20 22 Lumbar Epidural steroid injection under fluoroscopic guidance completed Jackson Retana MD [email or web address] , [address], [place], [address], [place] [facility] 05/21/2022 15:11:26 11/21/19 22 Lumbar Epidural steroid injection under fluoroscopic guidance completed Jackson Retana MD [email or web address] , [address], [place], [address], [place] [facility] 11/21/2021 09:54:22 05/08/20 21 Lumbar Epidural steroid injection under fluoroscopic guidance completed Jackson Retana MD [email or web address] , [address], [place], [address], [place] [facility] 05/08/2021 10:15:21 Imaging Results None recorded. Procedure Notes None recorded. Medical Equipment None Reported. Allergies Allergen ID Allergen Name Allergen Category Reaction Reaction Severity Criticality Documentation Date Start Date Code Code System Note Provider Name and Address Organization Details Recorded Time 88439 Substance with sulfonami de structure and antibacte rial mechanism of action (substanc e) medicatio n Not available Not available Not available 03/21/2021 12006 8003 SNOMED Nanette Sherman n null, [place] [...] completed Not Available Not Available Not Available prednisone 20 mg tablet PLEASE SEE ATTACHED FOR DETAILED DIRECTION S active Not Available Not Available No t Available atenolol 25 mg tablet TAKE 1 TABLET BY MOUTH EVERY DAY active Not Available Not Available No t Available amlodipine 5 mg tablet TAKE 1 [...] completed Not Available Not Available Not Available atenolol 50 mg tablet TAKE 1 TABLET BY MOUTH EVERY DAY active Not Available Not Available No t Available loratadine 10 mg tablet TAKE 1 TABLET BY MOUTH EVERY DAY FOR 7 DAYS active Not Available Not Available No t Available naproxen 500 mg tablet TAKE 1 [...] saturation in Arterial blood by Pulse oximetry Pain severity - 0-10 verbal numeric rating [Score] - Reported Body mass index (BMI) Body weight Systolic And Diastolic Provider Name and Address Organization Details Last Updated DateTime 5 180.34 cm 64 /min 98 % 98 % 6 27.9 kg/m2 99818.4 7 g 141/88 mm[Hg] Jackson mccormick MD [address] , [address], [place], [address], [place] [facility] 5 09:38:04 Date Recorded Body height Heart rate Oxygen saturation Oxygen saturation in Arterial blood by Pulse oximetry Pain severity - 0-10 verbal numeric rating [Score] - Reported Systolic And Diastolic Provider Name and Address Organization Details Last Updated DateTime 4 180.34 cm 85 /min 95 % 95 % 3 137/80 mm[Hg] Ashleigh Payan [place] [facility] 4 15:36:24 Date Recorded Body height Heart rate Oxygen saturation Oxygen saturation in Arterial blood by Pulse oximetry Pain severity - 0-10 verbal numeric rating [Score] - Reported Systolic And Diastolic Provider Name and Address Organization Details Last Updated DateTime 4 180.34 cm 87 /min 97 % 97 % 5 145/84 mm[Hg] Stella jeronimo [place] [facility] 4 15:36:31 Date Recorded Body height Pain severity - 0-10 verbal numeric rating [Score] - Reported Body mass index (BMI) Body weight Systolic And Diastolic Provider Name and Address Organization Details Last Updated DateTime 03/09/2025 180.34 cm 3 27.9 kg/m2 38217.47 g 162/92 mm[Hg] Jackson mccormick MD [address] , [address], [place], [address], [place] [facility] 5 13:05:16 Date Recorded Body height Heart rate Oxygen saturation Oxygen saturation in Arterial blood by Pulse oximetry Pain severity - 0-10 verbal numeric rating [Score] - Reported Systolic And Diastolic Provider Name and Address Organization Details Last Updated DateTime 3 180.34 cm 77 /min 98 % 98 % 4 148/92 mm[Hg] Stella Salazar phani [place] [facility] 3 15:25:20 Social History Question Answer Notes LastModified by [employer] Details LastModified Time Tobacco Smoking Status Never Smoker Nanette villasenor [place] [facility] 03/21/2021 14:45:06 Which Illicit Or Recreational Drugs Have You Used? None Information not available 03/21/2021 Marital Status Informati on not available 03/21/2021 Sex: Unknown Functional Status Question Answer Note LastModified by [employer] Details LastModified Time What is your level of alcohol consumption? 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 [employer] Information not available 03/21/2021 Do you or [...] Asthma N HIV/AIDS N Bipolar Disorder N GERD/Reflux N High Cholesterol N Liver Disease N Pulmonary Embolism N Fibromyalgia N Irritable Bowel Syndrome N Hypertension Y Osteoporosis N Kidney Disease N Past Encounters Encounter ID Performer Location Encounter Start Date Encounter Closed Date Diagnosis/Indication Diagnosis SNOMED-CT Code Diagnosis ICD10 Code Diagnosis IMO Codes Diagnosis Note [id number] Jackson Retana MD [facility] [address] [place] [address] 03/21/2021 14:33:31 03/21/2021 15:38:18 Degeneration of lumbar intervertebral disc 14064121 M51.36 Lumbosacra l radiculopathy 7342587 M54.17 [id number] Jackson Retana MD [facility] [address] [place] [address] 04/18/2021 12:53:03 04/18/2021 13:33:39 Degeneration of lumbar intervertebral disc 43988240 M51.36 Lumbosacra l radiculopathy 0512404 M54.17 [id number] Jackson Retana MD [facility] [address] [place] [address] 05/08/2021 09:39:22 05/08/2021 10:19:35 Degeneration of lumbar intervertebral disc 30904064 M51.36 Lumbosacra l radiculopathy 1193843 M54.17 [id number] Jackson Retana MD [facility] [address] [place] [address] 06/07/2021 13:07:04 06/07/2021 14:52:18 Degeneration of lumbar intervertebral disc 11954438 M51.36 Lumbosacra l radiculopathy 9649532 M54.17 [id number] Jackson Retana MD [facility] [address] [place] [address] 11/21/2021 08:43:23 11/21/2021 10:01:41 Degeneration of lumbar intervertebral disc 83286403 M51.36 Lumbosacra l radiculopathy 8239255 M54.17 [id number] Jackson Retana MD [facility] [address] [place] [address] 05/21/2022 14:48:50 05/21/2022 15:23:20 Degeneration of lumbar intervertebral disc 59625080 M51.36 Lumbosacra l radiculopathy 3096137 M54.17 [id number] Jackson Retana MD [facility] [address] [facility] [place] [address] 09/16/2022 14:13:56 09/16/2022 16:02:37 Lumbosacral radiculopathy 2308455 M54.17 Degenerati on of lumbar intervertebral disc 82712150 M51.36 [id number] Jackson Retana MD [facility] [address] [facility] [place] [address] 12/18/2022 14:53:28 12/18/2022 16:10:47 Lumbosacral radiculopathy 9812196 M54.17 Degenerati on of lumbar intervertebral disc 66177220 M51.36 [id number] Jackson Retana MD [facility] [address] [facility] [place] [address] 03/19/2023 10:33:05 03/19/2023 14:29:08 Lumbosacral radiculopathy 1843484 M54.17 Degenerati on of lumbar intervertebral disc 75556851 M51.36 [id number] Jackson Retana MD [facility] [address] [facility] [place] [address] 09/15/2023 12:46:55 09/15/2023 14:01:58 Lumbosacral radiculopathy 0865788 M54.17 Degenerati on of lumbar intervertebral disc 72573835 M51.36 [id number] Jackson Retana MD [facility] [address] [facility] [address] 10/09/2023 15:02:50 10/09/2023 16:11:25 Lumbosacral radiculopathy 2810103 M54.17 Degenerati on of lumbar intervertebral disc 77906408 M51.36 [id number] Jackson Retana MD [facility] [address] [facility] [place] [place] [address] 02/16/2024 15:23:15 02/16/2024 15:59:29 Lumbosacral radiculopathy 2947649 M54.17 Degenerati on of lumbar intervertebral disc 32580542 M51.36 [id number] Jackson Retana MD PA[facility] [address] [place] [address] 03/04/2024 15:16:59 03/04/2024 16:06:42 Lumbosacral radiculopathy 4586572 M54.17 Degenerati on of lumbar intervertebral disc 06505510 M51.36 [id number] Jackson Retana MD [facility] [address] [place] [address] 02/04/2025 09:28:08 02/07/2025 15:05:54 Lumbosacral radiculopathy 6201975 M54.17 Degenerati on of lumbar intervertebral disc 57485862 M51.361 [id number] Jackson Retana MD [facility] [address] [facility] [place] [place] [address] 03/09/2025 12:57:39 03/09/2025 15:17:11 Lumbosacral radiculopathy 5130118 M54.17 Degenerati on of lumbar intervertebral disc 19269801 M51.362 [id number] Health Concerns Section Related Observation LastModified by Organization Detai ls LastModified Time None Recorded Concern Status LastModified by Organization Details LastModified Time None Recorded Advance Directives Directive None Recorded Payers Insurance Date Sequence Insurance Name Policy Number Policy Desai Covered Member ID Desai Member ID Guarantor Name 02/04/2025 1 [employer] [facility] (PPO) Amado Lobo [id number] Amado Lobo 06/10/2025 1 [facility] (PPO) Amado Lobo [id number] Amado Lobo 02/04/2025 1 [employer] (EPO) [id number] Amado Lobo [id number] Amado Lobo 02/04/2025 1 [facility] (PPO) Amado Lobo [id number] Amado Lobo 02/04/2025 1 [employer] (POS) [id number] Amado Lobo [id number] Amado Lobo Notes Date Note Type Note Provider Name and Address Organization Details Recorded Time 10/09/2023 text/html He is here today for a lumbar epidural steroid injection under fluoroscopic guidance. Jackson Retana MD [address] , [address], [place], [address], [facility] 10/09/2023 16:17:27 02/16/2024 text/html Amado [...] the epidural injections. Jackson Retana MD [address] , [address], [place], [address], [facility] 02/17/2024 08:56:26 03/04/2024 text/html He is here today for a lumbar epidural steroid injection under fluoroscopic guidance. Jackson Retana MD [address] , [address], [place], [address], [facility] 03/04/2024 16:13:51 02/04/2025 text/html Amado [...] the epidural injections. Jackson Retana MD [address] , [address], [place], [address], [facility] 02/07/2025 15:30:27 03/09/2025 text/html He is here today for a lumbar epidural steroid injection under fluoroscopic guidance. Jackson Retana MD [address] [place] [address] , [address], [place], [address], [facility] 03/09/2025 15:18:52
--- OUTSIDE RECORDS SUMMARY | 2025-09-07 18:47 | XMS_ITS | Patient Health Record ---
Author Organization [facility] Address [address] [place] [address] Care Team Providers Care Inspector Materials And Processes Name Role Phone Amparo LIN, Jeanna Kim Primary Care Provider Un available Black, Nele[place] Unavailable [phone] Reason For Referral No Information Medications Medication SIG (Take, Route, Frequency, Duration) Notes Start Date End Date Status Lisinopril-hydroCHLOROthia zide 20-25 MG 1 tablet Orally Once a day; Duration: 30 day(s) Active Problems Problem Type SNOMED Code ICD Code Onset Dates Problem Status W/U Status Risk Notes Problem 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 Problem Bursitis (93129475) Bursitis (727.3) Active confirmed Problem Myositis (45209557) Myositis (729.1) Active confirmed Problem Pain in limb (41197194) Pain in Limb (729.5) Active confirmed Problem Plantar fasciitis (404580747) Plantar Fasciitis (728.71) Active confirmed Plan Of Treatment Pending Test Test Name Order Date X ray : Foot, left 3V 02/24/2012 X ray : Foot, right 3V 02/24/2012 Insurance Providers Payer Name Payer Address Payer Phone Subscriber Number Group Number Insured Name Patient Relationship to Insured Coverage Start Date Coverage End Date [facility] [address] [place] [address] [id number] Amado Ochoa Self - patient is the insured Medical (General) History Medical History History ICD Code chicken pox high blood pressure measles
== END 2025-09-07 17:10 | disposition home or self-care (01) ==
PROVIDERS: PCP Internal Medicine; Visit Provider Internal Medicine
DX: M48.061 Spinal stenosis, lumbar region without neurogenic claudication (principal)

== ENCOUNTER 2025-10-05 15:59 | Outpatient (AMB) | payer OTHER, SELFPAY ==
[2025-10-05 16:02] VITALS: BP 136/80; PULSE 72; RESP 16; TEMP 36.5; O2SAT 98; BMI 29.0
--- NOTE | 2025-10-05 16:02 | MHC.PC.OV ---
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 Required: No Allergies Sulfa (Sulfonamide Antibiotics) Allergy (Unknown, Verified 10/05/25 16:10) Rash Medication List - Last Reconciled 10/05/25 by Jeanna Christensen MD amlodipine 10 mg PO DAILY atenolol 50 mg PO DAILY lisinopril-hydrochlorothiazide 20-25 mg 1 tab PO DAILY Tobacco use date assessed: 10/05/25 Dental Screening Dental Screen Date: 10/05/25 Did you have a dental visit in the last 12 months?: Yes Did you have a dental problem in the last 6 months where you did not have access to dental care?: No Was dental information given to patient?: Patient has dentist HPI HPI Comments History of Present Illness Details Chief Complaint The patient presents for a follow-up visit to manage chronic conditions and discuss concerns about back pain, memory, and family medical history. History of Present Illness The patient is a 55 year old male presenting with follow-up for chronic conditions including back pain and hypertension, health maintenance, and discussion of new concerns including memory loss and family history of aortic dissection. The patient has a history of chronic back pain for the past 8 years, which he attributes to degenerative changes and weightlifting, resulting in two herniated discs. A recent MRI about a month ago showed worsening from the previous scan, with one disc starting to push out over the left nerve root. He reports the pain is constant and is exacerbated by certain movements like picking things up from the ground or overhead, even when bending from the knees. He finds it difficult to straighten out upon waking in the morning. He has learned to live with the pain but can no longer lift weights, though he recently tried bench pressing which caused a lot of pain the next day. For pain management, he takes two 500 mg Tylenol and 600 mg of Motrin once a day with food, which helps. He also uses Thermacare heating patches, sometimes wearing one all day and even sleeping with one on. He has an appointment with a gear machine operator in December for his plantar fasciitis, but also plans to discuss his back pain. He has had injections in the past, but not for a year, and is refusing surgery at this time. The patient is on lisinopril with a water pill and atenolol in the morning, and amlodipine at night for hypertension, and reports no issues with this regimen. His last lab work in February showed slightly elevated cholesterol and one liver enzyme. He has not had his recent labs done due to travel but plans to get them done on Friday after a 12-hour fast. The patient is concerned about memory issues, reporting that he has been forgetting things. This concern is heightened by a family history of Alzheimer's disease; his mother was diagnosed around age 68-69 and at 77 after a rapid decline. His mother and his mother's aunt are the only ones in the family with this history. He also reports a family history of aortic dissection; his father was diagnosed with it and two aneurysms at the patient's current age after presenting with symptoms suggestive of a heart attack. The patient reports having had an abdominal ultrasound years ago which was negative. For health maintenance, his last colonoscopy revealed one precancerous polyp was removed; the next one is due in 2026. He has no family history of colon cancer. He is not up to date on vaccines, including shingles, but has had no related issues. He sees a dentist every six months and plans to schedule an eye exam soon. He wears contacts for myopia and denies cataracts or macular degeneration. FORMERLY [facility], [facility] Medical History (Updated 10/08/25 @ 23:26 by Jeanna Christensen MD) Degenerative lumbar spinal stenosis Hyperlipidemia Degenerative thoracic spinal stenosis Spinal stenosis of lumbar region with radiculopathy Family history of dissecting aortic aneurysm Internal hemorrhoid Diverticulosis Vitamin D deficiency Hypertriglyceridemia Low back pain potentially associated with radiculopathy Heartburn symptom Lumbago Tetanus, diphtheria, and acellular pertussis (Tdap) vaccination declined Influenza vaccination declined Essential hypertension Surgical History Hx of colonoscopy History of esophagogastroduodenoscopy (EGD) No pertinent past surgical history Family History Father Dissecting aortic aneurysm (any part), thoracic Mother Mental health disorder Essential hypertension Brother No problems noted. Sister No problems noted. Daughter No problems noted. Maternal Grandmother Diabetes mellitus Social History Housing: House Alcohol intake: current Alcohol intake frequency: a few times a month Patient Tobacco Use Status: Former Tobacco user Years Smoked: 6 months e-Cigarette/Vaping Use: Never Used service: No Current occupational status: employed Cognitive needs: No Hearing needs: No Vision needs: Yes Questionnaire PHQ-9 Over the last 2 weeks, how often have you been bothered by any of the following problems? 1. Little interest or pleasure in doing things: not at all 2. Feeling down, depressed, or hopeless: not at all 3. Trouble falling or staying asleep, or sleeping too much: not at all 4. Feeling tired or having little energy: not at all 5. Poor appetite or overeating: not at all 6. Feeling bad about yourself - or that you are a failure or have let yourself or your family down: not at all 7. Trouble concentrating on things, such as reading the newspaper or watching television: not at all 8. Moving or speaking so slowly that other people could have noticed. Or the opposite - being so fidgety or restless that you have been moving around a lot more than usual: not at all 9. Thoughts that you would be better off or of hurting yourself in some way: not at all Total score: 0 Depression Screening Interpretation: Negative Depression Screening Done: Yes Source: Developed by Drs. Joshua Valentino, Nayeli Keene, Irineo Chung and colleagues, with an educational pato from [employer]. Thrive Questionnaire Date Thrive assessed: 11/30/24 I am a: Patient What is your living situation today?: I have a steady place to live Within the past 12 months, did the food you bought not last and you didn't have the money to get more?: I choose not to answer this question Within the past 12 months, did you worry whether your food would run out before you got money to buy more?: I choose not to answer this question Do you have trouble paying for medicines?: No Do you have trouble getting transportation to medical appointments?: No Do you have trouble paying your heating and electricity bill?: No Do you have trouble taking care of your child, family member or friend?: No Do you have trouble with day-to-day activities such as bathing, preparing meals, shopping, managing finances, etc.?: No Are you currently unemployed and looking for a job?: No Are you interested in more education?: No Please select the resources that you would like help with: None Currently or been in a relationship where the following occur: I choose not to answer THRIVE Score: 0 AUDIT C Alcohol Use Questionnaire (AUDIT-C) 1. How often do you have a drink containing alcohol?: Monthly or less 2. How many drinks containing alcohol do you have on a typical day when you are drinking?: 1 or 2 3. How often do you have six or more drinks on one occasion?: Less than monthly Total Score: 2 NICOLÁS-7 AMB Questionnaire NICOLÁS-7 Date NICOLÁS - 7 assessed: 11/30/24 Feeling nervous, anxious, or on edge: 0 = Not at all Not being able to stop or control worryin = Not at all Worrying too much about different things: 0 = Not at all Trouble relaxin = Not at all Being so restless that it is hard to sit still: 0 = Not at all Becoming easily annoyed or irritable: 0 = Not at all Feeling afraid as if something awful might happen: 0 = Not at all Total NICOLÁS-7 score (0-4 normal; 5-9 mild; 10-14 moderate; 15-21 severe): 0 Source: Developed by Drs. Joshua Valentino, Nayeli Keene, Irineo Chung and colleagues, with an educational pato from [employer]. Review of Systems Narrative Const Denies headache(s), Denies malaise and Denies weakness Eyes Details: GOES TO [facility] WEARS CONTACT LENSES FOR MYOPIA ENT Denies otalgia, Denies headache(s), Denies nasal congestion and Denies disequilibrium Card Denies chest pain, Denies chest pain with activity, Denies rapid heart rate, Denies irregular heart rhythm, Denies lightheadedness, Denies palpitations, Denies dyspnea and Denies dyspnea on exertion Resp Denies dyspnea and Denies dyspnea on exertion GI Denies abdominal pain, Denies change in bowel habits, Denies excessive flatus, Denies dyspepsia and Denies diarrhea Reports no additional complaints Musc Reports as per HPI Skin/Breast Denies dry skin, Denies lesions and Denies rash Neuro Reports no additional complaints, Denies headache(s), Denies disequilibrium and Denies weakness Psych Reports no additional complaints Endo Reports no additional complaints and Denies palpitations Nick/Lymph Denies easy bleeding and Denies easy bruising Aller/Immun Reports no additional complaints Physical exam (Primary Care) Vital Signs: Last Vital Signs Temp 97.7 F 10/05/25 16:02 Pulse 72 10/05/25 16:02 Resp 16 10/05/25 16:02 BP 136/80 10/05/25 16:02 Pulse Ox 98 10/05/25 16:02 Oxygen Delivery Method Room Air 10/05/25 16:02 BMI result Body Mass Index 29.0 Tobacco/Smoking Status: Tobacco use Status Tobacco use date assessed 10/05/25 10/05/25 16:04 Patient Tobacco Use Status Former Tobacco user 10/05/25 16:04 e-Cigarette/Vaping Use Never Used 10/05/25 16:04 PHQ-9: PHQ-9 Score PHQ-9: Total score 0 10/05/25 16:10 Depression Screening Interpretation: Negative Thrive Assessment: Date of Thrive Assessment Date Thrive assessed 11/30/24 10/05/25 16:04 Currently or been in a relationship where the following occur: I choose not to answer Narrative Const General: comfortable and no acute distress Orientation/consciousness: patient oriented x3 Eyes General: appearance normal, both eyes and all related structures Neck Neck: Yes full ROM, Yes no lymphadenopathy and Yes supple Resp Effort & Inspection: normal respiratory effort and able to speak in complete sentences Auscultation: clear to auscultation bilaterally Cardio Rate: regular rate Rhythm: regular rhythm Heart sounds: S1 normal heart sound present and S2 normal heart sound present GI Palpation (GI): Soft to palpation, nontender, no guarding and no masses Auscultation: normal bowel sounds and no bruits Back/Spine/Pelvis Cervical Spine: normal cervical lordosis and cervical ROM normal Thoracic/Lumbar Spine: straight leg raise negative bilaterally, pain with thoraco-lumbar ROM and paraspinal muscle tenderness Skin General skin exam: no rashes or lesions noted Neuro General: patient oriented x3, gait normal, tone normal, moves all extremities, Normal light touch and pain sensation and no focal motor deficits Cognition (Neuro): normal cognition Gait exam (Neuro): Normal gait present Motor exam (neuro): 5/5 motor strength present throughout Extrem General: Yes full ROM, Yes no joint enlargement, Yes no pedal edema, Yes no calf tenderness and Yes normal gait Psych Appearance: grossly normal and well kempt Mental Status: mental status grossly normal Speech and movement: Normal speech and movement present Affect: normal affect Coding Level of Care Code Est Pt Prev Care 40-64y(80383) Diagnoses Annual visit for general adult medical examination with abnormal findings Z00.01 Essential hypertension I10 Family history of dissecting aortic aneurysm Z82.49 Spinal stenosis of lumbar region with radiculopathy M48.061; M54.16 Pure hypercholesterolemia E78.00 Hyperlipidemia type: pure hypercholesterolemia Assessment & Plan Assessment & Plan (1) Annual visit for general adult medical examination with abnormal findings: Code(s): Z00.01 - Encounter for general adult medical examination with abnormal findings Plan: Will check appropriate labs. Continued regular dental visit every 6 months and regular eye exams, at least every 2 years. Take adequate calcium in diet and vitamin-D 3 at 2000 IU per cap once a day, in addition to weight-bearing exercises to help maintain good muscle tone and weight control. Instructed to do self testicular exam check for any mass. Patient does not to get any vaccines. Up-to-date with his colon cancer screening due again in 2026 (2) Essential hypertension: Code(s): I10 - Essential (primary) hypertension Category: Medical Plan: Continue amlodipine , lisinopril hydrochlorothiazide and atenolol at same dose (3) Family history of dissecting aortic aneurysm: Comment: Father Code(s): Z82.49 - Family history of ischemic heart disease and other diseases of the circulatory system Category: Medical Plan: Father diagnosed do diskectomy and in his late 60s, patient currently asymptomatic . Referral to Cardiology ordered further (4) Spinal stenosis of lumbar region with radiculopathy: Code(s): M48.061 - Spinal stenosis, lumbar region without neurogenic claudication; M54.16 - Radiculopathy, lumbar region Category: Medical Plan: Patient has tried cortisone injections in his back, physical therapy, with no improvement, referral to physiatry already ordered with a an appointment scheduled for December 2025 (5) Hyperlipidemia: Code(s): E78.5 - Hyperlipidemia, unspecified Category: Medical Qualifiers: Hyperlipidemia type: pure hypercholesterolemia Qualified Code(s): E78.00 - Pure hypercholesterolemia, unspecified Plan: Fasting lipid panel ordered. Continue adherence to low-cholesterol diet and moderate intensity exercise, at least 30 minutes 3 to 4 times a week. Advised patient to make healthy food choices, eat more fruits, vegetables, whole grains, wild caught fish and low-fat dairy. Limit amount of meat and fried or fatty food products, as well as processed foods and fast foods. Orders: Referrals Cardiology Referral I10 - Essential (primary) hypertension, Z82.49 - Family history of ischemic heart disease and other diseases of the circulatory system
--- OUTSIDE RECORDS SUMMARY | 2025-10-06 00:42 | XMS_ITS | Patient Health Record ---
Author Organization [facility] Address [address] [place] [address] Care Team Providers Care Accounts Payable Lead Name Role Phone Amparo LIN, Jeanna Primary [...] 1 day 07/21/2019 Active Lisinopril 20 MG Tablet 1 tablet Orally Once a day; Duration: 30 day(s) Active Immunizations Vaccine Route Administration Date Status Comme nts Influenza Unknown 07/21/2019 Refused Social History Tobacco Use: Social History Observation Description Date Details (start date - stop date) Never Smoker NA - NA Social History Drugs/Alcohol: Social Info Question Answer Notes Alcohol Screen Did you have a drink containing alcohol in the past year? Yes How often did you have a drink containing alcohol in the past year? Monthly or less (1 point) How many drinks did you have on a typical day when you were drinking in the past year? 1 or 2 drinks (0 point) How often did you have 6 or more drinks on one occasion in the past year? 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 Problems Problem Type SNOMED Code ICD Code Onset Dates Problem Status W/U Status Risk Notes Problem Colon cancer screening (457378214) Colon cancer screening (Z12.11) Active confirmed Problem Pre-procedure evaluation check (686275881) Encounter for other preprocedural examination (Z01.818) Active confirmed Plan Of Treatment Future Test Test Name Order Date COLONOSCOPY 07/21/2019 Insurance Providers Payer Name Payer Address Payer Phone Subscriber Number Group Number Insured Name Patient Relationship to Insured Coverage Start Date Coverage End Date [employer] [address] [place] [phone] [id number] DAYANARA OCHOA Self - patient is the insured Medical (General) History Medical History History ICD Code hypertension elevated triglycerides Surgical History Surgery Date(Month/Year)
--- OUTSIDE RECORDS SUMMARY | 2025-10-06 00:42 | XMS_ITS | Patient Health Record ---
Author Organization [facility] Address [address] [place] [address] Care Team Providers Care Instructional Technology Specialist Name Role Phone Amparo LIN, Jeanna Kim Primary Care Provider Un available Black, Neelam Unavailable [phone] Reason For Referral No Information Medications Medication SIG (Take, Route, Frequency, Duration) Notes Start Date End Date Status Lisinopril-hydroCHLOROthia zide 20-25 MG 1 tablet Orally Once a day; Duration: 30 day(s) Active Problems Problem Type SNOMED Code ICD Code Onset Dates Problem Status W/U Status Risk Notes Problem 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) Active confirmed Problem Bursitis (50169675) Bursitis (727.3) Active confirmed Problem Myositis (17907807) Myositis (729.1) Active confirmed Problem Pain in limb (57162008) Pain in Limb (729.5) Active confirmed Problem Plantar fasciitis (517953208) Plantar Fasciitis (728.71) Active confirmed Plan Of Treatment Pending Test Test Name Order Date X ray : Foot, left 3V 02/24/2012 X ray : Foot, right 3V 02/24/2012 Insurance Providers Payer Name Payer Address Payer Phone Subscriber Number Group Number Insured Name Patient Relationship to Insured Coverage Start Date Coverage End Date [facility] [address] [place] [address] [id number] Amado Ochoa Self - patient is the insured Medical (General) History Medical History History ICD Code chicken pox high blood pressure measles
--- OUTSIDE RECORDS SUMMARY | 2025-10-06 00:42 | XMS_ITS | Data Portability ---
Author Organization [place] [facility] Address [address] [facility] [address] [place] [address] Care Team Providers Care Railcar Switcher Name Role Phone ZABRINA SALEH Primary Care [...] He wishes to proceed. He needs a clamp truck driver on the day of the procedure. [...] He wishes to proceed. He needs a clamp truck driver on the day of the procedure. [...] By Organization Details Last Modified Time 10/09/2023 [id number] He was advised against bed rest lasting longer than four days and to continue activities as tolerated. [email or web address] Not available 10/09/2023 16:03:47 02/16/2024 [id number] He was advised against bed rest lasting longer than four days and to continue activities as tolerated. [email or web address] Not available 02/16/2024 15:57:33 03/04/2024 [id number] He was advised against bed rest lasting longer than four days and to continue activities as tolerated. [email or web address] Not available 03/04/2024 15:59:36 02/04/2025 [id number] He was advised against bed rest lasting longer than four days and to continue activities as tolerated. [email or web address] Not available 02/07/2025 13:57:38 03/09/2025 [id number] He was advised against bed rest lasting longer than four days and to continue activities as tolerated. [email or web address] Not available 03/09/2025 13:25:11 Reason for Referral None Reported. Problems Name Problem SNOMED Code Status Onset Date Resolution Date Notes Provider Name and Address Organization Details Recorded Time Lumbosacral radiculopathy 4993723 Active Jackson mccormick MD [address] , [address], [place], [address], [place] [facility] 15:08:40 Degeneration of lumbar intervertebral disc 21091710 Active 2020 Jackson mccormick MD [address] , [address], [place], [address], [place] [facility] 15:08:52 Problem Notes None recorded. Procedures Surgical History Date Name Laterality Status Provider Name and Address Organization Details Recorded Time 03/09/20 25 Lumbar Epidural steroid injection under fluoroscopic guidance completed Jackson Retana MD [address] , [address], [place], [address], [place] [facility] 03/09/2025 13:26:03 03/04/20 24 Lumbar Epidural steroid injection under fluoroscopic guidance completed Jackson Retana MD [address] , [address], [place], [address], [place] [facility] 03/04/2024 16:00:22 10/09/20 23 Lumbar Epidural steroid injection under fluoroscopic guidance completed Jackson Retana MD [address] , [address], [place], [address], [place] [facility] 10/09/2023 16:08:28 03/19/20 23 Lumbar Epidural steroid injection under fluoroscopic guidance completed Jackson Retana MD [address] , [address], [place], [address], [place] [facility] 03/19/2023 14:02:50 05/21/20 22 Lumbar Epidural steroid injection under fluoroscopic guidance completed Jackson Retana MD [address] , [address], [place], [address], [place] [facility] 05/21/2022 15:11:26 11/21/19 22 Lumbar Epidural steroid injection under fluoroscopic guidance completed Jackson Retana MD [address] , [address], [place], [address], [place] [facility] 11/21/2021 09:54:22 05/08/20 21 Lumbar Epidural steroid injection under fluoroscopic guidance completed Jackson Retana MD [address] , [address], [place], [address], [place] [facility] 05/08/2021 10:15:21 Imaging Results None recorded. Procedure Notes None recorded. Medical Equipment None Reported. Allergies Allergen ID Allergen Name Allergen Category Reaction Reaction Severity Criticality Documentation Date Start Date Code Code System Note Provider Name and Address Organization Details Recorded Time 23969 Substance with sulfonami de structure and antibacte rial mechanism of action (substanc e) medicatio n Not available Not available Not available 03/21/2021 [id number] SNOMED Nanette Sherman n null, [place] [...] Recorded Body height Heart rate Oxygen saturation Pain severity - 0-10 verbal numeric rating [Score] - Reported Body mass index (BMI) Body weight Systolic And Diastolic Provider Name and Address Organization Details Last Updated DateTime 5 180.34 cm 64 /min 98 % 6 27.9 kg/m2 72793.4 7 g 141/88 mm[Hg] Jackson mccormick MD [address] , [address], [place], [address], [place] [facility] 5 09:38:04 Date Recorded Body height Heart rate Oxygen saturation Pain severity - 0-10 verbal numeric rating [Score] - Reported Systolic And Diastolic Provider Name and Address Organization Details Last Updated DateTime 02/16/2024 180.34 cm 85 /min 95 % 3 137/80 mm[Hg] Ashleigh Payan [place] [facility] 4 15:36:24 Date Recorded Body height Heart rate Oxygen saturation Pain severity - 0-10 verbal numeric rating [Score] - Reported Systolic And Diastolic Provider Name and Address Organization Details Last Updated DateTime 4 180.34 cm 87 /min 97 % 5 145/84 mm[Hg] Stella Yeboah [place] [facility] 4 15:36:31 Date Recorded Body height Pain severity - 0-10 verbal numeric rating [Score] - Reported Body mass index (BMI) Body weight Systolic And Diastolic Provider Name and Address Organization Details Last Updated DateTime 03/09/2025 180.34 cm 3 27.9 kg/m2 77273.47 g 162/92 mm[Hg] Jackson mccormick MD [address] , [address], [place], [address], [place] [facility] 5 13:05:16 Date Recorded Body height Heart rate Oxygen saturation Pain severity - 0-10 verbal numeric rating [Score] - Reported Systolic And Diastolic Provider Name and Address Organization Details Last Updated DateTime 3 180.34 cm 77 /min 98 % 4 148/92 mm[Hg] Stella Salazaro [place] [facility] 15:25:20 Social History Question Answer Notes LastModified by Organizat [employer] Details LastModified Time Tobacco Smoking Status Never Smoker Nanette villasenor [place] [facility] 03/21/2021 14:45:06 Which Illicit Or Recreational Drugs Have You Used? None Information not available 03/21/2021 Marital Status Informati on not available 03/21/2021 Sex: Unknown Functional Status Question Answer Note LastModified by Organizat ion Details LastModified Time What is your level of alcohol consumption? 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 [employer] Information not available 03/21/2021 Do you or [...] Neuropathy/Neuralgia N Kidney Stones N Hyperthyroidism N Depression N COPD N Hypothyroidism N Migrane N Anxiety Disorder N Diabetes N Seizures/Epilepsy N Arthritis Y Hyperlipidemia N Cancer N Stroke N Asthma N HIV/AIDS N Bipolar Disorder N High Cholesterol N GERD/Reflux N Liver Disease N Pulmonary Embolism N Fibromyalgia N Irritable Bowel Syndrome N Hypertension Y Osteoporosis N Kidney Disease N Past Encounters Encounter ID Performer Location Encounter Start Date Encounter Closed Date Diagnosis/Indication Diagnosis SNOMED-CT Code Diagnosis ICD10 Code Diagnosis IMO Codes Diagnosis Note [id number] Jackson Retana MD PAIN OFFICE [address] [facility] [address] [place] [address] 03/21/2021 14:33:31 03/21/2021 15:38:18 Degeneration of lumbar intervertebral disc 53252229 M51.36 Lumbosacra l radiculopathy 7488929 M54.17 [id number] Jackson Retana MD [facility] [address] [place] [address] 04/18/2021 12:53:03 04/18/2021 13:33:39 Degeneration of lumbar intervertebral disc 77798375 M51.36 Lumbosacra l radiculopathy 8036622 M54.17 [id number] Jackson Retana MD [facility] [address] [facility] [place] [place] [address] 05/08/2021 09:39:22 05/08/2021 10:19:35 Degeneration of lumbar intervertebral disc 06712526 M51.36 Lumbosacra l radiculopathy 8912447 M54.17 [id number] Jackson Retana MD [facility] [address] [facility] [place] [place] [address] 06/07/2021 13:07:04 06/07/2021 14:52:18 Degeneration of lumbar intervertebral disc 96788575 M51.36 Lumbosacra l radiculopathy 0216093 M54.17 [id number] Jackson Retana MD [facility] [address] [facility] [place] [place] [address] 11/21/2021 08:43:23 11/21/2021 10:01:41 Degeneration of lumbar intervertebral disc 58884224 M51.36 Lumbosacra l radiculopathy 7013277 M54.17 [id number] Jackson Retana MD [facility] [address] [facility] [place] [place] [address] 05/21/2022 14:48:50 05/21/2022 15:23:20 Degeneration of lumbar intervertebral disc 85826322 M51.36 Lumbosacra l radiculopathy 8820041 M54.17 [id number] Jackson Retana MD [facility] [address] [facility] [place] [place] [address] 09/16/2022 14:13:56 09/16/2022 16:02:37 Lumbosacral radiculopathy 4464859 M54.17 Degenerati on of lumbar intervertebral disc 42992408 M51.36 [id number] Jackson Retana MD PAIN OFFICE [address] [place] [address] 12/18/2022 14:53:28 12/18/2022 16:10:47 Lumbosacral radiculopathy 4428821 M54.17 Degenerati on of lumbar intervertebral disc 01268321 M51.36 [id number] Jackson Retana MD [facility] [address] [place] [address] 03/19/2023 10:33:05 03/19/2023 14:29:08 Lumbosacral radiculopathy 9678966 M54.17 Degenerati on of lumbar intervertebral disc 72226875 M51.36 [id number] Jackson Retana MD PAIN OFFICE [address] [place] [address] 09/15/2023 12:46:55 09/15/2023 14:01:58 Lumbosacral radiculopathy 0173056 M54.17 Degenerati on of lumbar intervertebral disc 03866292 M51.36 [id number] Jackson Retana MD PAIN OFFICE [address] [place] [address] 10/09/2023 15:02:50 10/09/2023 16:11:25 Lumbosacral radiculopathy 6630839 M54.17 Degenerati on of lumbar intervertebral disc 46753548 M51.36 [id number] Jackson Retana MD [facility] [address] [place] [address] 02/16/2024 15:23:15 02/16/2024 15:59:29 Lumbosacral radiculopathy 4145599 M54.17 Degenerati on of lumbar intervertebral disc 12001315 M51.36 [id number] Jackson Retana MD PAIN OFFICE [address] [place] [address] 03/04/2024 15:16:59 03/04/2024 16:06:42 Lumbosacral radiculopathy 4149065 M54.17 Degenerati on of lumbar intervertebral disc 33023181 M51.36 [id number] Jackson Retana MD PAIN OFFICE [address] [place] [address] 02/04/2025 09:28:08 02/07/2025 15:05:54 Lumbosacral radiculopathy 4611139 M54.17 Degenerati on of lumbar intervertebral disc 16282750 M51.361 [id number] Jackson Retana MD PAIN OFFICE [address] [place] [address] 03/09/2025 12:57:39 03/09/2025 15:17:11 Lumbosacral radiculopathy 6641184 M54.17 Degenerati on of lumbar intervertebral disc 05896517 M51.362 [id number] Health Concerns Section Related Observation LastModified by Organization Detai ls LastModified Time None Recorded Concern Status LastModified by Organization Details LastModified Time None Recorded Advance Directives Directive None Recorded Payers Insurance Date Sequence Insurance Name Policy Number Policy Desai Covered Member ID Desai Member ID Guarantor Name 02/04/2025 1 [employer] [facility] Amado Lobo [id number] Amado Lobo 06/10/2025 1 [facility] ([facility]) Amado Lobo [id number] Amado Lobo 02/04/2025 1 [employer] (EPO) [id number] Amado Lobo [id number] Amado Lobo 02/04/2025 1 [facility] ([facility] Amado Lobo [id number] Amado Lobo 02/04/2025 1 [employer] (POS) [id number] Amado Lobo [id number] Amado Lobo Notes Date Note Type Note Provider Name and Address Organization Details Recorded Time 10/09/2023 text/html He is here today for a lumbar epidural steroid injection under fluoroscopic guidance. Jackson Retana MD [address] [facility] , [address], [place], [address], [facility] - [facility] Management 10/09/2023 16:17:27 02/16/2024 text/html [...] the epidural injections. Jackson Retana MD [address] [facility] , [address], [place], [address], [facility] - [facility] Management 02/17/2024 08:56:26 03/04/2024 text/html He is here today for a lumbar epidural steroid injection under fluoroscopic guidance. Jackson Retana MD [address] , [address], [place], [address], [facility] - Pain Management 03/04/2024 16:13:51 [...] the epidural injections. Jackson Retana MD [address] , [address], [place], [address], [facility] - Pain Management 02/07/2025 15:30:27 03/09/2025 text/html He is here today for a lumbar epidural steroid injection under fluoroscopic guidance. Jackson Retana MD [address] , [address], [place], [address], [facility] - Pain Management 03/09/2025 15:18:52
== END 2025-10-05 16:32 | disposition home or self-care (01) ==
LOC: HO.HMCC 16:00
PROVIDERS: PCP Internal Medicine; Visit Provider Internal Medicine
DX: Z00.01 Encounter for general adult medical examination with abnormal findings (principal); I10 Essential (primary) hypertension; Z82.49 Family history of ischemic heart disease and other diseases of the circulatory system; M48.061 Spinal stenosis, lumbar region without neurogenic claudication; M54.16 Radiculopathy, lumbar region; E78.00 Pure hypercholesterolemia, unspecified